=== PATIENT | female | born 1955 | race Hispanic/Latino ===

== ENCOUNTER 2018-03-13 15:50 | Emergency (ER) | payer BC ==
[2018-03-13 16:30] LABS: BASOPHILS % (AUTO) 0.7 % (0.0-5.0); EOSINOPHILS % (AUTO) 2.1 % (0.0-8.0); HEMATOCRIT 29.4 % (36-48); LYMPHOCYTES % (AUTO) 21.3 % (21.0-51.0); MEAN CORPUSCULAR HEMOGLOBIN 26.4 pg (27.0-33.0); MEAN CORPUSCULAR HGB CONC 32.9 g/dL (32.0-36.0); MEAN CORPUSCULAR VOLUME 80.1 fL (79-99); MONOCYTES % (AUTO) 5.4 % (3.0-13.0); NEUTROPHILS % (AUTO) 70.5 % (40.0-77.0); PLATELET COUNT (AUTO) 92 K/uL (130-400); RED BLOOD CELL COUNT(AUTO) 3.67 MIL/uL (4.00-5.50); RED CELL DISTRIBUTION WIDTH 18.5 % (11.0-15.5); WHITE BLOOD COUNT (AUTO) 3.5 K/uL (4.8-10.8)
[2018-03-13 16:47] LABS: INR 1.11 (0.85-1.15); PROTHROMBIN TIME 11.6 SEC (9.6-11.6)
[2018-03-13 17:11] LABS: ALBUMIN 2.6 g/dL (3.5-5.0); BILIRUBIN,TOTAL 3.7 mg/dL (0.2-1.0); CREATINE KINASE MB 0.6 ng/mL (0.5-3.6); CREATININE 0.7 mg/dL (0.5-1.5); TOTAL PROTEIN, SERUM 7.2 g/dL (6.0-8.3)
[2018-03-13 17:19] LABS: APPEARANCE,URINE Clear (CLEAR); BILIRUBIN,URINE Negative (NEGATIVE); COLOR,URINE Dark Yellow (YELLOW); GLUCOSE, URINE (UA) Negative (NEGATIVE); KETONES,URINE Negative (NEGATIVE); LEUKOCYTE ESTERASE ,URINE Trace (NEGATIVE); NITRATE,URINE Negative (NEGATIVE); OCCULT BLOOD,URINE Negative (NEGATIVE); PH,URINE 5.5 (5.0-8.0); PROTEIN,URINE Negative (NEGATIVE)
[2018-03-13 17:41] LABS: RBC,URINE None Seen /HPF (0-1)
[2018-03-13 17:42] LABS: BACTERIA,URINE None Seen /HPF (None Seen); SQUAMOUS EPITHELIAL CELL,UR 0-2 /HPF (0-2); WBC,URINE 0-1 /HPF (0-1)
[2018-03-13] MEDS ORDERED: TRAMADOL HCL 50 MG TABLET ONE (21:28)
== END 2018-03-13 21:41 | disposition home or self-care (01) ==
LOC: EDH 15:50
DX: R10.9 Unspecified abdominal pain (principal); E11.9 Type 2 diabetes mellitus without complications; I10 Essential (primary) hypertension; E78.00 Pure hypercholesterolemia, unspecified; K74.60 Unspecified cirrhosis of liver; Z87.891 Personal history of nicotine dependence
CPT/HCPCS: 36415; 71045; 74176; 80053; 81001; 82150; 82553; 84484; 85025; 85610; 85730; 93005

== ENCOUNTER 2018-12-14 14:52 | Inpatient (IN) | payer BC, OTHER ==
[~2018-12-14] VITALS: Ht 170.2 cm; Wt 97.5 kg
[2018-12-14 15:33] LABS: BASOPHILS % (AUTO) 0.6 % (0.0-5.0); EOSINOPHILS % (AUTO) 2.1 % (0.0-8.0); HEMATOCRIT 29.3 % (36-48); LYMPHOCYTES % (AUTO) 14.2 % (21.0-51.0); MEAN CORPUSCULAR HEMOGLOBIN 24.2 pg (27.0-33.0); MEAN CORPUSCULAR HGB CONC 31.6 g/dL (32.0-36.0); MEAN CORPUSCULAR VOLUME 76.6 fL (79-99); MONOCYTES % (AUTO) 5.1 % (3.0-13.0); PLATELET COUNT (AUTO) 85 K/uL (130-400); RED BLOOD CELL COUNT(AUTO) 3.83 MIL/uL (4.00-5.50); RED CELL DISTRIBUTION WIDTH 18.3 % (11.0-15.5); WHITE BLOOD COUNT (AUTO) 3.4 K/uL (4.8-10.8)
[2018-12-14] MEDS ORDERED: ONDANSETRON HCL 4 MG/2 ML VIAL ONE (15:36)
[2018-12-14] MEDS ORDERED: MORPHINE SULFATE 4 MG/1ML SYG ONE (15:37)
[2018-12-14 15:46] LABS: ALBUMIN 2.8 g/dL (3.5-5.0); BILIRUBIN,TOTAL 1.9 mg/dL (0.2-1.0); TOTAL PROTEIN, SERUM 7.5 g/dL (6.0-8.3)
[2018-12-14 15:58] LABS: APPEARANCE,URINE Clear (CLEAR); BILIRUBIN,URINE Negative (NEGATIVE); COLOR,URINE Yellow (YELLOW); GLUCOSE, URINE (UA) Negative (NEGATIVE); KETONES,URINE Negative (NEGATIVE); LEUKOCYTE ESTERASE ,URINE Small (NEGATIVE); NITRATE,URINE Negative (NEGATIVE); OCCULT BLOOD,URINE Large (NEGATIVE); PROTEIN,URINE Negative (NEGATIVE)
[2018-12-14 16:55] LABS: BACTERIA,URINE Few /HPF (None Seen); MUCUS,URINE Few LPF (None Seen); RBC,URINE >100 /HPF (0-1)
[2018-12-14] MEDS ORDERED: MEPERIDINE-PF 25 MG/ML SYG IV PRN (17:30)
[2018-12-14] MEDS ORDERED: MEPERIDINE-PF 50 MG/ML SYG IVP PRN (17:30)
[2018-12-14] MEDS ORDERED: ONDANSETRON HCL 4 MG/2 ML VIAL IVP PRN (17:30)
[2018-12-14] MEDS ORDERED: VANCOMYCIN PROTOCOL PER PHARMACY IV SCH (17:30)
[2018-12-14] MEDS ORDERED: ZOSYN 3.375GM+NS 50ML 50 ML IV ONE (17:39)
[2018-12-14] MEDS ORDERED: VANCOMYCIN 1GM+NS 250ML 250 ML IV ONE (17:39)
[2018-12-14] MEDS ORDERED: VANCOMYCIN 1GM+NS 250ML 250 ML IV SCH (18:00)
[2018-12-14] MEDS: ZOSYN 3.375GM+NS 50ML 50 ML IV SCH (18:00)
[2018-12-14] MEDS: FAMOTIDINE/PF 20 MG/2 ML VIAL IV SCH (21:00)
[2018-12-14] MEDS ORDERED: AMLO10TA7 PO (22:09)
[2018-12-14] MEDS ORDERED: FURO40TA5 PO (22:09)
[2018-12-14] MEDS ORDERED: URSO500T9 PO (22:09)
[2018-12-14] MEDS ORDERED: METO-391 PO (22:09)
[2018-12-14] MEDS ORDERED: LEVO50TA11 PO (22:09)
[2018-12-14] MEDS ORDERED: METF-444 PO (22:09)
[2018-12-14] MEDS ORDERED: SPIR50TA5 PO (22:09)
[2018-12-14] MEDS ORDERED: LACT10SO9 PO (22:09)
[2018-12-14] MEDS ORDERED: LOSA1TAB54 PO (22:09)
[2018-12-14 23:00] VITALS: BP 99/50
[2018-12-14] MEDS: SODIUM CHLORIDE 0.9% 1000ML 1,000 ML IV SCH (23:00)
[2018-12-15 04:00] VITALS: BP 99/55
[2018-12-15] MEDS: SODIUM CHLORIDE 0.9% 1000ML 1,000 ML IV SCH ×2 (04:45→17:18)
[2018-12-15] MEDS: ZOSYN 3.375GM+NS 50ML 50 ML IV SCH ×3 (04:45→17:16)
[2018-12-15] MEDS ORDERED: COMPOUND IV REFRIGERATED 1 EACH IVSOLN MISC PRN (06:45)
[2018-12-15 07:00] VITALS: BP 99/50
[2018-12-15] MEDS: FAMOTIDINE/PF 20 MG/2 ML VIAL IV SCH ×2 (10:12→21:00)
[2018-12-15] MEDS: VANCOMYCIN 1.5 GM in SODIUM CHLORIDE 0.9% 250 ML IV SCH ×2 (10:13→21:00)
[2018-12-15 11:00] VITALS: BP 90/48
[2018-12-15 12:26] LABS: BASOPHILS % (AUTO) 1.5 % (0.0-5.0); EOSINOPHILS % (AUTO) 4.1 % (0.0-8.0); HEMATOCRIT 26.5 % (36-48); LYMPHOCYTES % (AUTO) 29.5 % (21.0-51.0); MEAN CORPUSCULAR HEMOGLOBIN 24.2 pg (27.0-33.0); MEAN CORPUSCULAR HGB CONC 31.2 g/dL (32.0-36.0); MEAN CORPUSCULAR VOLUME 77.8 fL (79-99); MONOCYTES % (AUTO) 8.9 % (3.0-13.0); NUCLEATED RED BLOOD CELLS 0.1 % (0.0-0.19); PLATELET COUNT (AUTO) 79 K/uL (130-400); RED BLOOD CELL COUNT(AUTO) 3.41 MIL/uL (4.00-5.50); RED CELL DISTRIBUTION WIDTH 18.7 % (11.0-15.5); WHITE BLOOD COUNT (AUTO) 2.5 K/uL (4.8-10.8)
[2018-12-15 12:35] LABS: CREATININE 1.1 mg/dL (0.5-1.5); POTASSIUM 3.5 mmol/L (3.5-5.1)
[2018-12-15 12:47] LABS: EOSINOPHILS % (MANUAL) 2 % (1-6); LYMPHOCYTES % (MANUAL) 27 % (22-44); MAN.DIFF COMMENT-IMPRESSION MANUAL DIFFERENTIAL; MONOCYTES % (MANUAL) 7 % (2-9); REACTIVE LYMPHOCYTES 1 % (0-0); SEGMENTED NEUTROPHILS % 63 % (40-70)
[2018-12-15 16:00] VITALS: BP 107/54
--- NOTE | 2018-12-15 17:00 | NUR ---
MONSTER Bucio PT AND DAUGHTERS/ FAMILY; LIVES WITH SPOUSE, AAOX3, NO DME NO HH NO PROVIDER SERVICES. DCP HOME Addendum: 12/15/18 at 1902 by SHERRY NOLAND RN CM Amended: Links added.
[2018-12-15 19:00] VITALS: BP 106/58
[2018-12-15] MEDS ORDERED: [UNRECOGNIZED DRUG - CODE] PO (21:45)
--- NOTE | 2018-12-15 21:58 | NUR ---
Patient went home with daughter Meri-[phone] in private vehicle. Offered wheel chair, refused it and go to the entrance as ambulative.
== END 2018-12-15 22:00 | disposition home or self-care (01) | DRG 254 ==
LOC: EDH 14:52 → EDHIP 17:00 → 3DH 23:03
PROVIDERS: ADMIT Family Medicine; ATTEND Family Medicine
DX: K42.9 Umbilical hernia without obstruction or gangrene (principal)
CPT/HCPCS: 36415; 74176; 80048; 80053; 81001; 83690; 85025; 87040; G0378; J2270; J2405; J2543; J3370; J3490; J7030

== ENCOUNTER → 2019-01-02 | Outpatient (CLI) | payer OTHER ==
[~2019-01-02] MED LIST: AMLO10TA7 PO; FURO40TA5 PO; LACT10SO9 PO; LEVO50TA11 PO; LOSA1TAB54 PO; METF-444 PO; METO-391 PO; SPIR50TA5 PO; URSO500T9 PO; [UNRECOGNIZED DRUG - CODE] PO
== END | disposition home or self-care (01) ==
LOC: RAH 09:19
PROVIDERS: ATTEND Internal Medicine Gastroenterology
DX: K74.3 Primary biliary cirrhosis (principal); Z90.49 Acquired absence of other specified parts of digestive tract
CPT/HCPCS: 76700; 93975

== ENCOUNTER → 2019-12-22 | Outpatient (CLI) | payer OTHER ==
[~2019-12-22] MED LIST changes: +ALBUMIN (HUMAN) 25% 200 ML IV SCH; +ERGO500014 PO; +FERS325 PO; +MAGN296S76 PO; +OMEP40CA13 PO; +RIFA550T PO; +SENN25TA PO; +URSO500T10 PO; -URSO500T9 PO; -[UNRECOGNIZED DRUG - CODE] PO
[2019-12-22 08:38] LABS: INR 1.12 (0.85-1.15)
--- NOTE | 2019-12-22 10:15 | NUR ---
U/S GD PARACENTESIS PROCEDURE PERFORMED BY DR Willa ROTH. PUNCTURE SITE RLQ AND PATIENT TOLERATED PROCEDURE WELL. TOTAL REMOVED 7.8 LITERS OF CLOUDY YELLOW FLUID. ALBUMIN 25% 50 GRAMS IV GIVEN DURING PROCEDURE. SPECIMEN SENT TO LAB. END OF PROCEDURE AT 0945. CATHETER REMOVED AND DRESSING APPLIED. NO BLEEDING NOTED. DISCHARGE INSTRUCTIONS GIVEN TO PATIENT AND VERBALIZED UNDERSTANDING. DISCHARGED VIA AMBULATION. AAO X3 WITH NO C/O PAIN.
[2019-12-22 15:54] LABS: APPEARANCE BODY FLUID CLEAR (CLEAR); COLOR,BODY FLUID YELLOW (LT YELLOW); SPECIMENTYPE,BODY FLUID ASCITES
[2019-12-22 15:55] LABS: BODY FLUID RBC 60 /cu. mm.; BODY FLUID WBC 88 /cu. mm.
[2019-12-22 16:15] LABS: TOTAL VOLUME,BODY FLUID 7800 mL
[2019-12-22 17:56] LABS: BF LYMPHOCYTE 9 %; BF MESOTHELIAL 2 %; BF MONOCYTE 8 %
== END ==
LOC: RAH 07:17
PROVIDERS: ATTEND Student in an Organized Health Care Education/Training Program
DX: R18.8 Other ascites (principal); Z79.01 Long term (current) use of anticoagulants
CPT/HCPCS: 36415; 49083; 85610; 85730; 87071; 87205; 89051; A4215; P9046

== ENCOUNTER → 2020-01-10 | Outpatient (CLI) | payer OTHER ==
[2020-01-10 10:10] LABS: BASOPHILS % (AUTO) 0.5 % (0.0-5.0); EOSINOPHILS % (AUTO) 4.7 % (0.0-8.0); HEMATOCRIT 30.3 % (36-48); LYMPHOCYTES % (AUTO) 10.7 % (21.0-51.0); MEAN CORPUSCULAR HEMOGLOBIN 30.4 pg (27.0-33.0); MONOCYTES % (AUTO) 5.2 % (3.0-13.0); NEUTROPHILS % (AUTO) 78.3 % (40.0-77.0); PLATELET COUNT (AUTO) 113 K/uL (130-400); RED BLOOD CELL COUNT(AUTO) 3.19 MIL/uL (4.00-5.50); WHITE BLOOD COUNT (AUTO) 8.3 K/uL (4.8-10.8)
[2020-01-10 10:19] LABS: INR 1.12 (0.85-1.15)
[2020-01-10 10:24] LABS: ALBUMIN 2.2 g/dL (3.5-5.0); ASPARTATE AMINOTRANSFERASE 36 U/L (10-37); CARBON DIOXIDE 23 mmol/L (21-32); CHLORIDE 108 mmol/L (101-111); CREATININE 2.3 mg/dL (0.5-1.5); GLOMERULAR FILTR. RATE CALC 23 mL/min (>60); GLUCOSE,RANDOM 127 mg/dL (70-105); POTASSIUM 4.5 mmol/L (3.5-5.1); SODIUM SERUM 136 mmol/L (136-145); TOTAL PROTEIN, SERUM 7.6 g/dL (6.0-8.3); UREA NITROGEN, BLOOD 28 mg/dL (7-18)
[2020-01-10 10:43] LABS: ALANINE AMINOTRANSFERASE < 6 U/L (12-78)
--- NOTE | 2020-01-10 10:45 | NUR ---
U/S GD PARACENTESIS PROCEDURE PERFORMED BY DR. PATEL. PUNCTURE SITE RIGHT LOWER QUADRANT OF ABDOMEN AND PATIENT TOLERATED PROCEDURE WELL. TOTAL REMOVED 9.3 LITERS OF CLOUDY YELLOW FLUID. END OF PROCEDURE AT 1120. CATHETER REMOVED AND DRESSING APPLIED. NO BLEEDING NOTED. ALBUMIN 25% 50 GRAMS GIVEN DURING [place] [facility] [place]. PIV DC'D, BANDAID APPLIED, DRESSING DRY AND INTACT. DISCHARGE INSTUCTIONS GIVEN TO PATIENT. PATIENT VERBALIZED UNDERSTANDING. PT DISCHARGED AMBULATORY, STABLE, AAO X3 WITH NO C/O PAIN. SPECIMEN SENT TO LAB.
[2020-01-10 16:01] LABS: APPEARANCE BODY FLUID CLEAR (CLEAR); BODY FLUID WBC 53 /cu. mm.; COLOR,BODY FLUID YELLOW (LT YELLOW); SPECIMENTYPE,BODY FLUID ASCITES; TOTAL VOLUME,BODY FLUID 9300 mL
[2020-01-10 16:02] LABS: BODY FLUID RBC 70 /cu. mm.
[2020-01-10 16:46] LABS: BF LYMPHOCYTE 41 %; BF MONOCYTE 1 %
== END | disposition home or self-care (01) ==
LOC: RAH 09:43
PROVIDERS: ATTEND Internal Medicine Gastroenterology
DX: K74.3 Primary biliary cirrhosis (principal); R18.8 Other ascites; D50.9 Iron deficiency anemia, unspecified; E11.9 Type 2 diabetes mellitus without complications; I10 Essential (primary) hypertension; E78.5 Hyperlipidemia, unspecified; Z79.899 Other long term (current) drug therapy; Z86.010 Personal history of colon polyps; Z79.84 Long term (current) use of oral hypoglycemic drugs; Z90.49 Acquired absence of other specified parts of digestive tract; Z72.89 Other problems related to lifestyle; Z82.49 Family history of ischemic heart disease and other diseases of the circulatory system
CPT/HCPCS: 36415; 49083; 80053; 85025; 85610; 87071; 87205; 89051; A4215; P9046; 96365

== ENCOUNTER → 2020-02-02 | Outpatient (CLI) | payer OTHER ==
--- NOTE | 2020-02-02 09:36 | NUR ---
U/S GD PARACENTESIS PROCEDURE PERFORMED BY DR. Nohemi BARROSO. PUNCTURE SITE RIGHT LOWER QUADRANT OF ABDOMEN AND PATIENT TOLERATED PROCEDURE WELL. TOTAL REMOVED 9.4 LITERS OF CLOUDY YELLOW FLUID. END OF PROCEDURE AT 0900. CATHETER REMOVED AND DRESSING APPLIED. NO BLEEDING NOTED. ALBUMIN 25% 50 GRAMS GIVEN DURING PROCEDURE PER [facility] [place]. PIV DC'D, BANDAID APPLIED, DRESSING DRY AND INTACT. DISCHARGE INSTUCTIONS GIVEN TO PATIENT. PATIENT VERBALIZED UNDERSTANDING. PT DISCHARGED AMBULATORY, STABLE, AAO X3 WITH NO C/O PAIN. SPECIMEN SENT TO LAB.
[2020-02-02 13:29] LABS: APPEARANCE BODY FLUID SLIGHTLY CLOUDY (CLEAR); COLOR,BODY FLUID YELLOW (LT YELLOW); SPECIMENTYPE,BODY FLUID ASCITES
[2020-02-02 13:30] LABS: BODY FLUID RBC 50 /cu. mm.; BODY FLUID WBC 92 /cu. mm.; TOTAL VOLUME,BODY FLUID 9400 mL
[2020-02-02 13:33] LABS: BF LYMPHOCYTE 49 %; BF MONOCYTE 29 %
== END | disposition home or self-care (01) ==
LOC: RAH 08:03
PROVIDERS: ATTEND Internal Medicine Gastroenterology
DX: K74.3 Primary biliary cirrhosis (principal); R18.8 Other ascites; I10 Essential (primary) hypertension; E11.9 Type 2 diabetes mellitus without complications; E78.5 Hyperlipidemia, unspecified; Z79.84 Long term (current) use of oral hypoglycemic drugs; Z79.899 Other long term (current) drug therapy; Z90.49 Acquired absence of other specified parts of digestive tract; Z79.01 Long term (current) use of anticoagulants
CPT/HCPCS: 49083; 87071; 87205; 89051; 96365; A4215; P9046

== ENCOUNTER → 2020-02-21 | Outpatient (CLI) | payer OTHER ==
[2020-02-21 10:22] LABS: BASOPHILS % (AUTO) 0.5 % (0.0-5.0); EOSINOPHILS % (AUTO) 9.7 % (0.0-8.0); HEMATOCRIT 28.2 % (36-48); LYMPHOCYTES % (AUTO) 8.3 % (21.0-51.0); MEAN CORPUSCULAR HEMOGLOBIN 30.6 pg (27.0-33.0); MEAN CORPUSCULAR HGB CONC 32.6 g/dL (32.0-36.0); MEAN CORPUSCULAR VOLUME 93.7 fL (79-99); MONOCYTES % (AUTO) 5.1 % (3.0-13.0); NEUTROPHILS % (AUTO) 75.8 % (40.0-77.0); PLATELET COUNT (AUTO) 108 K/uL (130-400); RED BLOOD CELL COUNT(AUTO) 3.01 MIL/uL (4.00-5.50); WHITE BLOOD COUNT (AUTO) 8.2 K/uL (4.8-10.8)
[2020-02-21 10:28] LABS: INR 1.06 (0.85-1.15); PROTHROMBIN TIME 11.4 SEC (9.6-11.6)
[2020-02-21 10:30] LABS: ALBUMIN 2.5 g/dL (3.5-5.0); ASPARTATE AMINOTRANSFERASE 30 U/L (10-37); BILIRUBIN,TOTAL 1.3 mg/dL (0.2-1.0); CARBON DIOXIDE 22 mmol/L (21-32); CHLORIDE 105 mmol/L (101-111); CREATININE 3.6 mg/dL (0.5-1.5); GLOMERULAR FILTR. RATE CALC 14 mL/min (>60); GLUCOSE,RANDOM 104 mg/dL (70-105); POTASSIUM 5.3 mmol/L (3.5-5.1); SODIUM SERUM 136 mmol/L (136-145); TOTAL PROTEIN, SERUM 7.2 g/dL (6.0-8.3); UREA NITROGEN, BLOOD 61 mg/dL (7-18)
[2020-02-21 10:32] LABS: ALANINE AMINOTRANSFERASE < 6 U/L (12-78)
--- NOTE | 2020-02-21 11:00 | NUR ---
U/S GD PARACENTESIS PROCEDURE PERFORMED BY DR. MALHOTRA. PUNCTURE SITE RIGHT LOWER QUADRANT OF ABDOMEN AND PATIENT TOLERATED PROCEDURE WELL. TOTAL REMOVED 8.2 LITERS OF CLOUDY YELLOW FLUID. END OF PROCEDURE AT 1140. CATHETER REMOVED AND DRESSING APPLIED. NO BLEEDING NOTED. ALBUMIN 25% 50 GRAMS GIVEN DURING PROCEDURE PER [facility] [place]BUM[place] PROTOCOL. RIGHT ANTECUBITAL PIV DC'D, BANDAID APPLIED, DRESSING DRY AND INTACT. DISCHARGE INSTRUCTIONS GIVEN TO PATIENT. PATIENT VERBALIZED UNDERSTANDING. PT DISCHARGED VIA W/C, STABLE, AAO X3 WITH NO C/O PAIN. SPECIMEN SENT TO LAB.
[2020-02-21 13:56] LABS: APPEARANCE BODY FLUID CLEAR (CLEAR); COLOR,BODY FLUID YELLOW (LT YELLOW); SPECIMENTYPE,BODY FLUID ASCITES; TOTAL VOLUME,BODY FLUID 8400 mL
[2020-02-21 13:57] LABS: BODY FLUID RBC 62 /cu. mm.; BODY FLUID WBC 115 /cu. mm.
[2020-02-21 14:12] LABS: BF LYMPHOCYTE 29 %; BF MESOTHELIAL 29 %; BF MONOCYTE 10 %
== END | disposition home or self-care (01) ==
LOC: RAH 09:43
PROVIDERS: ATTEND Internal Medicine Gastroenterology
DX: R18.8 Other ascites (principal); K74.3 Primary biliary cirrhosis
CPT/HCPCS: 36415; 49083; 80053; 85025; 85610; 87071; 87205; 89051; A4215; P9046; 96365

== ENCOUNTER 2020-03-04 11:20 | Inpatient (IN) | payer OTHER ==
[~2020-03-04] VITALS: Ht 167.6 cm; Wt 86.5 kg
[~2020-03-04 11:20] MED LIST changes: -ALBUMIN (HUMAN) 25% 200 ML IV SCH; -AMLO10TA7 PO; -ERGO500014 PO; -MAGN296S76 PO; -SENN25TA PO
[2020-03-04 12:07] LABS: INR 1.08 (0.85-1.15); PARTIAL THROMBOPLASTIN TIME 23.1 SEC (26.3-35.5); PROTHROMBIN TIME 11.6 SEC (9.6-11.6)
[2020-03-04 12:08] LABS: ALBUMIN 2.6 g/dL (3.5-5.0); BILIRUBIN,TOTAL 2.4 mg/dL (0.2-1.0); CREATININE 3.4 mg/dL (0.5-1.5); TOTAL PROTEIN, SERUM 7.7 g/dL (6.0-8.3)
[2020-03-04 12:29] LABS: BASOPHILS % (AUTO) 0.5 % (0.0-5.0); EOSINOPHILS % (AUTO) 5.6 % (0.0-8.0); HEMATOCRIT 27.5 % (36-48); LYMPHOCYTES % (AUTO) 3.2 % (21.0-51.0); MEAN CORPUSCULAR HEMOGLOBIN 30.3 pg (27.0-33.0); MEAN CORPUSCULAR HGB CONC 33.5 g/dL (32.0-36.0); MEAN CORPUSCULAR VOLUME 90.5 fL (79-99); MONOCYTES % (AUTO) 4.7 % (3.0-13.0); NEUTROPHILS % (AUTO) 85.2 % (40.0-77.0); PLATELET COUNT (AUTO) 130 K/uL (130-400); RED BLOOD CELL COUNT(AUTO) 3.04 MIL/uL (4.00-5.50); RED CELL DISTRIBUTION WIDTH 15.9 % (11.0-15.5); WHITE BLOOD COUNT (AUTO) 16.4 K/uL (4.8-10.8)
[2020-03-04 12:34] LABS: POTASSIUM 6.4 mmol/L (3.5-5.1)
[2020-03-04] MEDS ORDERED: ZOSYN 3.375GM+NS 50ML 50 ML IV ONE (13:02)
[2020-03-04 13:05] LABS: APPEARANCE,URINE Clear (CLEAR); BILIRUBIN,URINE Small (NEGATIVE); COLOR,URINE Dark Yellow (YELLOW); GLUCOSE, URINE (UA) Negative (NEGATIVE); KETONES,URINE Negative (NEGATIVE); LEUKOCYTE ESTERASE ,URINE Trace (NEGATIVE); NITRATE,URINE Positive (NEGATIVE); OCCULT BLOOD,URINE Negative (NEGATIVE); PROTEIN,URINE Negative (NEGATIVE)
[2020-03-04 13:18] LABS: BACTERIA,URINE Many /HPF (None Seen); RBC,URINE 0-1 /HPF (0-1); SQUAMOUS EPITHELIAL CELL,UR Rare /HPF (0-2)
[2020-03-04 13:30] LABS: CREATINE KINASE, TOTAL 94 U/L (21-232); MYOGLOBIN 27 ng/mL (10-92); TROPONIN I < 0.04 ng/mL (0.00-0.06)
[2020-03-04] MEDS ORDERED: FUROSEMIDE 10 MG/ML 4ML VIAL ONE (15:19)
[2020-03-04] MEDS ORDERED: INSULIN HUMULIN R 100 UNIT/ML 3ML ONE (15:20)
[2020-03-04] MEDS ORDERED: DEXTROSE 50%-WATER 50 ML DISP.SYRIN IV ONE (15:20)
[2020-03-04 17:17] LABS: ABG BASE EXCESS -7.1 mmol/L (-2.0-3.0); ABG HCO3 16.2 mmol/L (21.0-28.0); ABG OXYGEN SATURATION 97.7 % (95.0-99.0); ABG PCO2 28 mmHg (32-45)
[2020-03-04] MEDS ORDERED: LACTATED RINGERS 1000ML 1,000 ML IV ONE (18:00)
[2020-03-04] MEDS ORDERED: NOREPINEPHRINE 4MG/NS 250ML IV SCH (18:15)
[2020-03-04 19:15] VITALS: BP 95/52
--- NOTE | 2020-03-04 19:15 | NUR ---
RECEIVED BY STRETCHER FROM ER. MOVED TO ICU BED 207. PLACED ON [employer] COORDINATOR,NIBP, PULSE OXIMETER. CALL LIGHT GIVEN AND EXPLAINED. LR BOLUS INFUSING FROM ER. INSTRUCTED TO CALL FOR WANTS OR NEEDS. ICE CHIPS PROVIDED AT HER REQUEST.
[2020-03-04 19:19] VITALS: BP 95/52
[2020-03-04 19:30] VITALS: BP 103/57
[2020-03-04 20:00] VITALS: BP 106/54
[2020-03-04 20:30] VITALS: BP 106/53
[2020-03-04] MEDS: ZOSYN 3.375GM+NS 50ML 50 ML IV SCH (21:05)
[2020-03-04] MEDS ORDERED: VITAMIN D2 (21:22)
[2020-03-04] MEDS ORDERED: LIDOCAINE HCL-MPF 1% 2ML VIAL IV PRN (22:15)
[2020-03-04] MEDS ORDERED: GUAIFENESIN-DM 200/20 MG 10 ML PO PRN (22:15)
[2020-03-04] MEDS ORDERED: POTASSIUM CHLORIDE 20MEQ/100ML 100 ML IV PRN (22:15)
[2020-03-04] MEDS ORDERED: MAG HYDROX/AL HYDROX/SIMETH ES 30 ML SUSP UDCUP PO PRN (22:15)
[2020-03-04] MEDS ORDERED: NITROGLYCERIN 0.4 MG SL TAB SL PRN (22:15)
[2020-03-04] MEDS ORDERED: ZOLPIDEM TARTRATE 5 MG TAB PO PRN ×2 (22:15)
[2020-03-04] MEDS ORDERED: ALPRAZOLAM 0.5 MG TABLET PO PRN (22:15)
[2020-03-04] MEDS ORDERED: ACETAMINOPHEN-CODEINE 300/30MG TAB PO PRN (22:15)
[2020-03-04] MEDS ORDERED: ONDANSETRON HCL 4 MG/2 ML VIAL IV PRN (22:15)
[2020-03-04] MEDS ORDERED: DOCUSATE SODIUM 100 MG CAP PO PRN (22:15)
[2020-03-04] MEDS ORDERED: ACETAMINOPHEN 325 MG TAB PO PRN ×2 (22:15)
[2020-03-04] MEDS ORDERED: LACTULOSE 20 GM/30 ML UDCUP PO PRN ×2 (22:15)
[2020-03-04] MEDS ORDERED: HYDRALAZINE HCL 20 MG/ML VIAL IV PRN (22:15)
[2020-03-04] MEDS ORDERED: DIPHENHYDRAMINE HCL 25 MG CAPSULE PO PRN (22:15)
[2020-03-04] MEDS ORDERED: DiphenhydrAMINE HCL 50 MG/ML VIAL IV PRN (22:15)
[2020-03-04] MEDS ORDERED: MAGNESIUM 2GM PREMIX 50ML 50 ML IV PRN (22:15)
[2020-03-04] MEDS ORDERED: MORPHINE SULFATE 2 MG/ML 1ML SYG IV PRN (22:15)
[2020-03-04] MEDS: SODIUM POLYSTYRENE SULFONATE 15 GM/60 ML ML PO SCH (23:22)
[2020-03-05] VITALS (9 sets, daily range): BP systolic 82–112; BP diastolic 42–74
[2020-03-05] MEDS: ZOSYN 3.375GM+NS 50ML 50 ML IV SCH ×3 (02:03→20:05)
[2020-03-05 03:43] LABS: MEAN CORPUSCULAR HEMOGLOBIN 31.3 pg (27.0-33.0); MEAN CORPUSCULAR HGB CONC 34.8 g/dL (32.0-36.0); MEAN CORPUSCULAR VOLUME 89.9 fL (79-99); RED BLOOD CELL COUNT(AUTO) 2.78 MIL/uL (4.00-5.50); WHITE BLOOD COUNT (AUTO) 11.7 K/uL (4.8-10.8)
[2020-03-05 03:53] LABS: INR 1.16 (0.85-1.15); PARTIAL THROMBOPLASTIN TIME 29.2 SEC (26.3-35.5); PROTHROMBIN TIME 12.5 SEC (9.6-11.6)
[2020-03-05 04:18] LABS: ALBUMIN 2.1 g/dL (3.5-5.0); ASPARTATE AMINOTRANSFERASE 31 U/L (10-37); BILIRUBIN,TOTAL 1.6 mg/dL (0.2-1.0); CARBON DIOXIDE 19 mmol/L (21-32); CHLORIDE 105 mmol/L (101-111); CREATININE 3.4 mg/dL (0.5-1.5); GLOMERULAR FILTR. RATE CALC 14 mL/min (>60); GLUCOSE,RANDOM 110 mg/dL (70-105); POTASSIUM 5.3 mmol/L (3.5-5.1); SODIUM SERUM 134 mmol/L (136-145); TOTAL PROTEIN, SERUM 6.2 g/dL (6.0-8.3); UREA NITROGEN, BLOOD 64 mg/dL (7-18)
[2020-03-05 04:39] LABS: ALANINE AMINOTRANSFERASE < 6 U/L (12-78)
[2020-03-05] MEDS: INSULIN HUMULIN R 100 UNIT/ML 3ML SQ SCH ×4 (06:12→20:03)
[2020-03-05] MEDS ORDERED: SODIUM BICARBONATE 650 MG TAB PO PRN (08:00)
[2020-03-05 08:08] LABS: CREATININE 3.3 mg/dL (0.5-1.5); POTASSIUM 5.5 mmol/L (3.5-5.1)
[2020-03-05] MEDS: MIDODRINE HCL 5 MG TABLET PO SCH ×3 (08:17→20:05)
[2020-03-05] MEDS: FAMOTIDINE 20MG TAB 20 MG TAB PO SCH (08:17)
--- NOTE | 2020-03-05 09:32 | NUR ---
ALERT AWAKE, ORIENTED, VITAL SIGNS STABLE. CONSENT SIGNED FOR PARACENTESIS PROCEDURE, TAKEN VIA BED AT THIS TIME WITHOUT INCIDENT
--- NOTE | 2020-03-05 10:30 | NUR ---
U/S GD PARACENTESIS PROCEDURE PERFORMED BY DR. Nohemi BARROSO. PUNCTURE SITE RIGHT LOWER QUADRANT OF ABDOMEN AND PATIENT TOLERATED PROCEDURE WELL. TOTAL REMOVED 6.8 LITERS OF CLOUDY YELLOW FLUID. END OF PROCEDURE AT 1015. CATHETER REMOVED AND DRESSING APPLIED. NO BLEEDING NOTED. ALBUMIN 25% 50 GRAMS ORDERED PER [facility] [place]. REPORT GIVEN TO FRANK RIDER AND PATIENT TRANSPORTED TO [facility] VIA BED AT 1030. NO C/O PAIN. SPECIMEN SENT TO LAB.
[2020-03-05 11:31] LABS: APPEARANCE BODY FLUID CLEAR (CLEAR); BODY FLUID RBC 90 /cu. mm.; BODY FLUID WBC 125 /cu. mm.; COLOR,BODY FLUID YELLOW (LT YELLOW); SPECIMENTYPE,BODY FLUID ASCITES; TOTAL VOLUME,BODY FLUID 6800 mL
--- NOTE | 2020-03-05 11:47 | NUR ---
DC PLAN VISITED WITH PATIENT. PATIENT LIVES WITH SPOUSE. INDEPENDENT ABLE TO PERFORM ADL'S. PATIENT HAS NO SERVICES OR DME'S. EXPLAINED PROVIDER INFO SAID WILL FOLLOW UP WITH DR. COLINDRES. FEELS SAFE TO DC HOME. Addendum: 03/05/20 at 1149 by JAG MORE RN CM Amended: Links added.
[2020-03-05 12:13] LABS: BF LYMPHOCYTE 21 %; BF MESOTHELIAL 20 %
[2020-03-05] MEDS ORDERED: PHARMACY COMMUNICATION MISC SCH (13:15)
[2020-03-05] MEDS: SODIUM POLYSTYRENE SULFONATE 15 GM/60 ML ML PO SCH (13:26)
[2020-03-05] MEDS ORDERED: DIPHENHYDRAMINE HCL 2% 30 GM CREAM.GM. TP PRN (13:30)
[2020-03-05] MEDS: ALBUMIN (HUMAN) 25% 200 ML IV SCH ×2 (14:03→14:07)
--- NOTE | 2020-03-05 15:08 | NUR ---
TRANSFER RECEIVED PATIENT VIA WHEELCHAIR. SHE IS NAUSEATED. SHE HAS BEEN ORIENTED TO ROOM AND USE OF CALL LIGHT. BED IS IN LOWEST POSITION AND LOCKED WITH PERSONAL ITEMS WITHIN REACH.
--- NOTE | 2020-03-05 16:33 | NUR ---
CREAM SEPARATOR OPERATOR DR. GUERRERO HERE TO SEE PATIENT. NEW ORDERS RECEIVED AND CARRIED OUT.
--- NOTE | 2020-03-05 20:05 | NUR ---
MEDS AWAKENED PT FOR DUE MEDS. SHIFT ASSESSMENT DONE, PLEASE REFER TO CHART. DUE MEDS ADMINISTERED, TOLERATED WELL. KEPT RESTED AND COMFORTABLE IN BED. CALL LIGHT WITHIN REACH. WILL MONITOR PT. Addendum: 03/05/20 at 2256 by WHITNEY COULTER RN RN Amended: Links added.
--- NOTE | 2020-03-05 22:00 | NUR ---
ROUNDS PT RESTING IN BED. CLAIMS OF HAVING A LOT OF ITCHING. BENADRYL CREAM APPLIED BY PT. ENCOURAGED TO REST AND SLEEP. WILL MONITOR PT. CALL LIGHT WITHIN REACH.
[2020-03-06] VITALS: BP 100/59
--- NOTE | 2020-03-06 02:00 | NUR ---
ROUNDS PT RESTING WELL, FAIRLY ASLEEP WITH RESPIRATIONS EVEN AND UNLABORED. NO NOTED DISTRESS. KEPT RESTED AND COMFORTABLE. SALINE LOCKED PIV. WILL MONITOR PT.
[2020-03-06 02:46] LABS: HEMATOCRIT 25.4 % (36-48); MEAN CORPUSCULAR HEMOGLOBIN 30.5 pg (27.0-33.0); MEAN CORPUSCULAR HGB CONC 33.5 g/dL (32.0-36.0); PLATELET COUNT (AUTO) 89 K/uL (130-400); RED BLOOD CELL COUNT(AUTO) 2.79 MIL/uL (4.00-5.50); RED CELL DISTRIBUTION WIDTH 15.9 % (11.0-15.5); WHITE BLOOD COUNT (AUTO) 10.9 K/uL (4.8-10.8)
[2020-03-06 02:59] LABS: ALBUMIN 2.3 g/dL (3.5-5.0); BILIRUBIN,TOTAL 1.5 mg/dL (0.2-1.0); CREATININE 3.1 mg/dL (0.5-1.5); PHOSPHORUS 4.1 mg/dL (2.5-4.9); POTASSIUM 5.1 mmol/L (3.5-5.1); TOTAL PROTEIN, SERUM 6.2 g/dL (6.0-8.3)
[2020-03-06 04:00] VITALS: BP 100/56
[2020-03-06 04:53] LABS: BAND NEUTROPHILS % (MANUAL) 9 % (0-2); EOSINOPHILS % (MANUAL) 7 % (1-6); LYMPHOCYTES % (MANUAL) 13 % (22-44); MAN.DIFF COMMENT-IMPRESSION MANUAL DIFFERENTIAL; MONOCYTES % (MANUAL) 3 % (2-9); SEGMENTED NEUTROPHILS % 68 % (40-70)
[2020-03-06 04:54] LABS: PLATELET MORPHOLOGY COMMENT DECREASED
--- NOTE | 2020-03-06 06:00 | NUR ---
BM PT WAS ABOUT TO BE MEDICATED WITH LACTULOSE BUT PT CLAIMS SHE JUST HAD A BM. PT REQUESTED TO KEEP SCD'S OFF FOR NOW. ENDORSING TO AM SHIFT FOR MORE CARE.
[2020-03-06] MEDS: INSULIN HUMULIN R 100 UNIT/ML 3ML SQ SCH ×2 (06:39→11:30)
[2020-03-06 07:52] VITALS: BP 92/53
[2020-03-06] MEDS ORDERED: EPOETIN ALFA 10,000 UNIT/ML VIAL SQ SCH (08:15)
[2020-03-06] MEDS: FAMOTIDINE 20MG TAB 20 MG TAB PO SCH (08:31)
[2020-03-06] MEDS: MIDODRINE HCL 5 MG TABLET PO SCH ×2 (08:32→14:55)
[2020-03-06] MEDS: ZOSYN 3.375GM+NS 50ML 50 ML IV SCH (08:32)
[2020-03-06] MEDS ORDERED: MEDROXYPROGESTERONE ACET 5 MG TAB PO SCH (09:00)
[2020-03-06 11:51] VITALS: BP 90/50
[2020-03-06] MEDS ORDERED: CEPH500B PO (13:57)
[2020-03-06] MEDS ORDERED: MEDR5TAB5 PO (13:57)
[2020-03-06] MEDS ORDERED: Midodrine Hcl PO (14:07)
[2020-03-06 16:00] VITALS: BP 90/42
--- NOTE | 2020-03-06 18:50 | NUR ---
DISCHARGE PATIENT GIVEN DISCHARGE INSTRUCTIONS VIA TEACH BACK. 22G PIV TO RW DISCONTINUED, TIP INTACT. PATIENT TO FOLLOW UP WITH DR. COLINDRES VIA TELE MEDICINE, DR. MORIN AND DR. GUERRERO. RX GIVEN FOR MIDODRINE, KEFLEX AND MEDROXYPROGESTERONE WERE E-RX TO [facility] IN [address]. TELE PACK REMOVED AND RETURNED TO TELEMETRY. PATIENT STABLE AT THIS TIME AND WHEELED TO [facility] BY MELISSA SNOW FOR DISCHARGE.
[2020-03-27] MEDS ORDERED: LEVO75TA10 PO (13:17)
[2020-03-28] MEDS ORDERED: SPIR25TA6 PO (08:10)
== END 2020-03-06 18:50 | disposition home or self-care (01) | DRG 871 ==
LOC: EDH 11:20 → EDHIP 16:30 → 2BH 19:33 → 3DH 03-05 15:08
PROVIDERS: ADMIT Internal Medicine Pulmonary Disease; ATTEND Internal Medicine Pulmonary Disease
PROC: 0W9G3ZZ Drainage of Peritoneal Cavity, Percutaneous Approach (ICD-10-PCS; principal; 2020-03-05)
DX: A41.9 Sepsis, unspecified organism (principal); R65.21 Severe sepsis with septic shock; K76.7 Hepatorenal syndrome; R18.8 Other ascites; N17.9 Acute kidney failure, unspecified; K76.6 Portal hypertension; N39.0 Urinary tract infection, site not specified; N95.0 Postmenopausal bleeding; D64.9 Anemia, unspecified; E87.5 Hyperkalemia; D25.9 Leiomyoma of uterus, unspecified; D69.6 Thrombocytopenia, unspecified; E78.00 Pure hypercholesterolemia, unspecified; E78.5 Hyperlipidemia, unspecified; K74.60 Unspecified cirrhosis of liver; N18.9 Chronic kidney disease, unspecified; E11.22 Type 2 diabetes mellitus with diabetic chronic kidney disease; I12.9 Hypertensive chronic kidney disease with stage 1 through stage 4 chronic kidney disease, or unspecified chronic kidney disease; Z79.84 Long term (current) use of oral hypoglycemic drugs; Z79.899 Other long term (current) drug therapy; Z83.3 Family history of diabetes mellitus
CPT/HCPCS: 36415; 36600; 49083; 71045; 74176; 76770; 76856; 80048; 80053; 81001; 82140; 82248; 82550; 82803; 82948; 83540; 83550; 83605; 83735; 83874; 84100; 84145; 84484; 85018; 85025; 85027; 85610; 85730; 86850; 86900; 86901; 87040; 87071; 87077; 87088; 87186; 87205; 89051; 93005; G0378; J0885; J1815; J1940; J2543; J3490; J7070; P9046

== ENCOUNTER → 2020-03-21 | Outpatient (CLI) | payer OTHER ==
[~2020-03-21] MED LIST changes: +ALBUMIN (HUMAN) 25% 200 ML IV SCH; +CEPH500B PO; +LEVO75TA10 PO; +MEDR5TAB5 PO; +Midodrine Hcl PO; +SPIR25TA6 PO; +VITAMIN D2
[2020-03-21 08:29] LABS: BASOPHILS % (AUTO) 0.4 % (0.0-5.0); EOSINOPHILS % (AUTO) 11.1 % (0.0-8.0); HEMATOCRIT 29.4 % (36-48); LYMPHOCYTES % (AUTO) 8.5 % (21.0-51.0); MEAN CORPUSCULAR HEMOGLOBIN 30.6 pg (27.0-33.0); MEAN CORPUSCULAR HGB CONC 32.3 g/dL (32.0-36.0); MEAN CORPUSCULAR VOLUME 94.8 fL (79-99); MONOCYTES % (AUTO) 5.2 % (3.0-13.0); NEUTROPHILS % (AUTO) 74.5 % (40.0-77.0); PLATELET COUNT (AUTO) 129 K/uL (130-400); RED CELL DISTRIBUTION WIDTH 18.1 % (11.0-15.5); WHITE BLOOD COUNT (AUTO) 9.2 K/uL (4.8-10.8)
[2020-03-21 08:42] LABS: INR 1.04 (0.85-1.15); PROTHROMBIN TIME 11.2 SEC (9.6-11.6)
[2020-03-21 08:44] LABS: ALBUMIN 2.7 g/dL (3.5-5.0); BILIRUBIN,TOTAL 1.8 mg/dL (0.2-1.0); CREATININE 2.4 mg/dL (0.5-1.5); POTASSIUM 5.4 mmol/L (3.5-5.1); TOTAL PROTEIN, SERUM 7.8 g/dL (6.0-8.3)
--- NOTE | 2020-03-21 10:04 | NUR ---
U/S GD PARACENTESIS PROCEDURE PERFORMED BY DR. Christina HEAD. PUNCTURE SITE RIGHT LOWER QUADRANT OF ABDOMEN AND PATIENT TOLERATED PROCEDURE WELL. TOTAL REMOVED 9.5 LITERS OF CLOUDY YELLOW FLUID. END OF PROCEDURE AT 1140. CATHETER REMOVED AND DRESSING APPLIED. NO BLEEDING NOTED. ALBUMIN 25% 50 GRAMS GIVEN DURING PROCEDURE PER [facility] [place] ALBUMIN PROTOCOL. LEFT ANTECUBITAL PIV DC'D, BANDAID APPLIED, DRESSING DRY AND INTACT. DISCHARGE INSTRUCTIONS GIVEN TO PATIENT. PATIENT VERBALIZED UNDERSTANDING. PT DISCHARGED VIA W/C, STABLE, AAO X3 WITH NO C/O PAIN. SPECIMEN SENT TO LAB.
[2020-03-21 13:07] LABS: APPEARANCE BODY FLUID CLEAR (CLEAR); COLOR,BODY FLUID YELLOW (LT YELLOW); SPECIMENTYPE,BODY FLUID ASCITES; TOTAL VOLUME,BODY FLUID 9500 mL
[2020-03-21 13:08] LABS: BODY FLUID RBC 60 /cu. mm.; BODY FLUID WBC 48 /cu. mm.
[2020-03-21 13:48] LABS: BF LYMPHOCYTE 16 %; BF MESOTHELIAL 36 %; BF MONOCYTE 12 %
== END ==
LOC: RAH 07:53
PROVIDERS: ATTEND Internal Medicine Gastroenterology
DX: R18.8 Other ascites (principal); K74.3 Primary biliary cirrhosis; E78.5 Hyperlipidemia, unspecified; Z86.010 Personal history of colon polyps; Z90.49 Acquired absence of other specified parts of digestive tract; Z79.899 Other long term (current) drug therapy; I85.00 Esophageal varices without bleeding; K72.90 Hepatic failure, unspecified without coma; E11.22 Type 2 diabetes mellitus with diabetic chronic kidney disease; I12.9 Hypertensive chronic kidney disease with stage 1 through stage 4 chronic kidney disease, or unspecified chronic kidney disease; N18.3 Chronic kidney disease, stage 3 (moderate); K29.70 Gastritis, unspecified, without bleeding
CPT/HCPCS: 36415; 49083; 80053; 85025; 85610; 87071; 87205; 89051; A4215; P9046; 96365

== ENCOUNTER 2020-03-28 06:00 | Day surgery (SDC) | payer OTHER ==
[2020-03-28] MEDS ORDERED: SODIUM CHLORIDE 0.9% 1000ML 1,000 ML IV ONE (06:08)
--- NOTE | 2020-03-28 07:55 | NUR ---
ascites DR. FRANK EVALUATED PATIENTS ASCITES , SHE STATED CONTINUED WITH PLANNED PROCEDURE
[2020-03-28 08:00] VITALS: BP 131/68; PULSE 61; RESP 18; TEMP 97.5
[2020-03-28] MEDS ORDERED: PROPOFOL 10 MG/ML 20ML VIAL IV ONE (09:00)
[2020-03-28 09:15] VITALS: BP 95/40; PULSE 65; RESP 16; TEMP 97.5
[2020-03-28 09:20] VITALS: BP 105/47; PULSE 66; RESP 16
[2020-03-28 09:25] VITALS: BP 121/89; PULSE 70; RESP 16
[2020-03-28 09:30] VITALS: BP 109/53; PULSE 66; RESP 16; TEMP 97.5
== END 2020-03-28 09:55 | disposition home or self-care (01) ==
LOC: DAH 06:00 → ENDO 06:00
PROVIDERS: ATTEND Internal Medicine
DX: I85.10 Secondary esophageal varices without bleeding (principal); K74.60 Unspecified cirrhosis of liver; K31.89 Other diseases of stomach and duodenum; Z11.59 Encounter for screening for other viral diseases
CPT/HCPCS: 43239; 82948; A4215; A4221; A4222; A4223; A4606; A4620; A4663; J2704; J7030; U0003

== ENCOUNTER → 2020-04-04 | Outpatient (CLI) | payer OTHER ==
[~2020-04-04] MED LIST changes: +ALBUMIN (HUMAN) 25% 200 ML IV ONE; -ALBUMIN (HUMAN) 25% 200 ML IV SCH; -CEPH500B PO; -FERS325 PO; -FURO40TA5 PO; -LACT10SO9 PO; -LEVO50TA11 PO; -LEVO75TA10 PO; -LOSA1TAB54 PO; -MEDR5TAB5 PO; -METF-444 PO; -METO-391 PO; -Midodrine Hcl PO; -OMEP40CA13 PO; -RIFA550T PO; -SPIR25TA6 PO; -SPIR50TA5 PO; -URSO500T10 PO; -VITAMIN D2
--- NOTE | 2020-04-04 09:15 | NUR ---
U/S GD PARACENTESIS PROCEDURE PERFORMED BY DR. HEAD. PUNCTURE SITE RIGHT LOWER QUADRANT OF ABDOMEN AND PATIENT TOLERATED PROCEDURE WELL. TOTAL REMOVED 10.3 LITERS OF CLOUDY YELLOW FLUID. END OF PROCEDURE AT 0955. CATHETER REMOVED AND DRESSING APPLIED. NO BLEEDING NOTED. ALBUMIN 25% 50 GRAMS GIVEN DURING PROCEDURE PER [facility] [place]. LEFT WRIST PIV DC'D, BANDAID APPLIED, DRESSING DRY AND INTACT. DISCHARGE INSTRUCTIONS GIVEN TO PATIENT. PATIENT VERBALIZED UNDERSTANDING. PT DISCHARGED VIA W/C, STABLE, AAO X3 WITH NO C/O PAIN. SPECIMEN SENT TO LAB.
== END | disposition home or self-care (01) ==
LOC: RAH 07:43
PROVIDERS: ATTEND Internal Medicine Gastroenterology
DX: R18.8 Other ascites (principal); K74.3 Primary biliary cirrhosis; I12.9 Hypertensive chronic kidney disease with stage 1 through stage 4 chronic kidney disease, or unspecified chronic kidney disease; E11.22 Type 2 diabetes mellitus with diabetic chronic kidney disease; N18.3 Chronic kidney disease, stage 3 (moderate); E78.5 Hyperlipidemia, unspecified; I10 Essential (primary) hypertension; Z90.49 Acquired absence of other specified parts of digestive tract; Z79.899 Other long term (current) drug therapy; Z98.890 Other specified postprocedural states; Z86.010 Personal history of colon polyps
CPT/HCPCS: 36415; 49083; 80053; 85025; 85610; 87071; 87205; 89051; A4215

== ENCOUNTER → 2020-04-15 | Outpatient (CLI) | payer OTHER ==
[~2020-04-15] MED LIST changes: +ALBUMIN (HUMAN) 25% 100 ML IV SCH; -ALBUMIN (HUMAN) 25% 200 ML IV ONE
--- NOTE | 2020-04-15 10:00 | NUR ---
U/S GD PARACENTESIS PROCEDURE PERFORMED BY DR. HEAD. PUNCTURE SITE RIGHT LOWER QUADRANT OF ABDOMEN AND PATIENT TOLERATED PROCEDURE WELL. TOTAL REMOVED 8.5 LITERS OF CLOUDY YELLOW FLUID. END OF PROCEDURE AT 0930. CATHETER REMOVED AND DRESSING APPLIED. NO BLEEDING NOTED. ALBUMIN 25% 50 GRAMS GIVEN DURING PROCEDURE [place] [facility] [place]. LEFT WRIST PIV DC'D, BANDAID APPLIED, DRESSING DRY AND INTACT. DISCHARGE INSTRUCTIONS GIVEN TO PATIENT. PATIENT VERBALIZED UNDERSTANDING. PT DISCHARGED VIA W/C, STABLE, AAO X3 WITH NO C/O PAIN. SPECIMEN SENT TO LAB.
== END ==
LOC: RAH 08:07
PROVIDERS: ATTEND Internal Medicine Gastroenterology
DX: R18.8 Other ascites (principal); K74.3 Primary biliary cirrhosis; I12.9 Hypertensive chronic kidney disease with stage 1 through stage 4 chronic kidney disease, or unspecified chronic kidney disease; E11.22 Type 2 diabetes mellitus with diabetic chronic kidney disease; N18.3 Chronic kidney disease, stage 3 (moderate); E78.5 Hyperlipidemia, unspecified; K29.70 Gastritis, unspecified, without bleeding; K72.90 Hepatic failure, unspecified without coma; I85.00 Esophageal varices without bleeding; Z79.890 Hormone replacement therapy; Z79.899 Other long term (current) drug therapy; Z72.89 Other problems related to lifestyle; Z86.010 Personal history of colon polyps; Z90.49 Acquired absence of other specified parts of digestive tract
CPT/HCPCS: 49083; 87071; 87205; 89051; A4215

== ENCOUNTER → 2020-04-25 | Outpatient (CLI) | payer OTHER ==
[~2020-04-25] MED LIST changes: -ALBUMIN (HUMAN) 25% 100 ML IV SCH; +ALBUMIN (HUMAN) 25% 200 ML IV SCH; +FERS325 PO; +LACT10SO9 PO; +LEVO75TA10 PO; +Midodrine Hcl PO; +OMEP40CA13 PO; +RIFA550T PO; +SPIR25TA6 PO; +URSO500T10 PO
--- NOTE | 2020-04-25 09:45 | NUR ---
U/S GD PARACENTESIS PROCEDURE PERFORMED BY DR. HEAD. PUNCTURE SITE LEFT LOWER QUADRANT OF ABDOMEN AND PATIENT TOLERATED PROCEDURE WELL. TOTAL REMOVED 10.1 LITERS OF CLOUDY YELLOW FLUID. END OF PROCEDURE AT 1045. CATHETER REMOVED AND DRESSING APPLIED. NO BLEEDING NOTED. ALBUMIN 25% 50 GRAMS GIVEN DURING PROCEDURE PER [facility] [place] [facility] PROTOC[place]. RIGHT ANTECUBITAL PIV DC'D, BANDAID APPLIED, DRESSING DRY AND INTACT. DISCHARGE INSTRUCTIONS GIVEN TO PATIENT. PATIENT VERBALIZED UNDERSTANDING. PT DISCHARGED VIA W/C, STABLE, AAO X3 WITH NO C/O PAIN. SPECIMEN SENT TO LAB.
[2020-04-25 13:57] LABS: APPEARANCE BODY FLUID CLEAR (CLEAR); BODY FLUID WBC 84 /cu. mm.; COLOR,BODY FLUID YELLOW (LT YELLOW); SPECIMENTYPE,BODY FLUID ASCITES; TOTAL VOLUME,BODY FLUID 10100 mL
[2020-04-25 13:58] LABS: BODY FLUID RBC 407 /cu. mm.
[2020-04-25 14:06] LABS: BF LYMPHOCYTE 11 %; BF MESOTHELIAL 25 %; BF MONOCYTE 18 %
== END ==
LOC: RAH 10:00
PROVIDERS: ATTEND Internal Medicine Gastroenterology
DX: R18.8 Other ascites (principal); K74.3 Primary biliary cirrhosis; I12.9 Hypertensive chronic kidney disease with stage 1 through stage 4 chronic kidney disease, or unspecified chronic kidney disease; E11.22 Type 2 diabetes mellitus with diabetic chronic kidney disease; N18.3 Chronic kidney disease, stage 3 (moderate); E78.5 Hyperlipidemia, unspecified; K72.90 Hepatic failure, unspecified without coma; Z90.49 Acquired absence of other specified parts of digestive tract; Z79.899 Other long term (current) drug therapy; Z72.89 Other problems related to lifestyle; Z79.84 Long term (current) use of oral hypoglycemic drugs
CPT/HCPCS: 49083; 87071; 87205; 89051; A4215; P9046; 96365

== ENCOUNTER → 2020-05-06 | Outpatient (CLI) | payer OTHER ==
--- NOTE | 2020-05-06 11:15 | NUR ---
U/S GD PARACENTESIS PROCEDURE PERFORMED BY DR. HEAD. PUNCTURE SITE RIGHT LOWER QUADRANT OF ABDOMEN AND PATIENT TOLERATED PROCEDURE WELL. TOTAL REMOVED 7.8 LITERS OF CLOUDY YELLOW FLUID. END OF PROCEDURE AT 1045. CATHETER REMOVED AND DRESSING APPLIED. NO BLEEDING NOTED. ALBUMIN 25% 50 GRAMS GIVEN DURING PROCEDURE PER [facility] [place] PROT[place]OL. LEFT FOREARM PIV DC'D, BANDAID APPLIED, DRESSING DRY AND INTACT. DISCHARGE INSTRUCTIONS GIVEN TO PATIENT. PATIENT VERBALIZED UNDERSTANDING. PT DISCHARGED VIA W/C, STABLE, AAO X3 WITH NO C/O PAIN. SPECIMEN SENT TO LAB.
[2020-05-06 13:48] LABS: APPEARANCE BODY FLUID CLEAR (CLEAR); BODY FLUID WBC 208 /cu. mm.; COLOR,BODY FLUID YELLOW (LT YELLOW); SPECIMENTYPE,BODY FLUID ASCITES; TOTAL VOLUME,BODY FLUID 7800 mL
[2020-05-06 13:49] LABS: BODY FLUID RBC 97 /cu. mm.
[2020-05-06 14:04] LABS: BF LYMPHOCYTE 7 %; BF MESOTHELIAL 9 %; BF MONOCYTE 16 %
== END ==
LOC: RAH 07:44
PROVIDERS: ATTEND Internal Medicine Gastroenterology
DX: R18.8 Other ascites (principal); K74.60 Unspecified cirrhosis of liver
CPT/HCPCS: 49083; 87071; 87205; 89051; A4215; P9047; 96365

== ENCOUNTER → 2020-05-16 | Outpatient (CLI) | payer OTHER ==
[2020-05-16 08:37] LABS: HEMATOCRIT 29.6 % (36-48); MEAN CORPUSCULAR HEMOGLOBIN 31.2 pg (27.0-33.0); MEAN CORPUSCULAR HGB CONC 32.4 g/dL (32.0-36.0); MEAN CORPUSCULAR VOLUME 96.1 fL (79-99); PLATELET COUNT (AUTO) 126 K/uL (130-400); RED BLOOD CELL COUNT(AUTO) 3.08 MIL/uL (4.00-5.50); RED CELL DISTRIBUTION WIDTH 16.8 % (11.0-15.5); WHITE BLOOD COUNT (AUTO) 13.6 K/uL (4.8-10.8)
[2020-05-16 08:54] LABS: INR 1.05 (0.85-1.15); PROTHROMBIN TIME 11.3 SEC (9.6-11.6)
[2020-05-16 08:59] LABS: ALBUMIN 2.8 g/dL (3.5-5.0); BILIRUBIN,TOTAL 2.1 mg/dL (0.2-1.0); CREATININE 1.7 mg/dL (0.5-1.5); POTASSIUM 5.2 mmol/L (3.5-5.1); TOTAL PROTEIN, SERUM 7.3 g/dL (6.0-8.3)
--- NOTE | 2020-05-16 09:00 | NUR ---
U/S GUIDED PARACENTESIS PROCEDURE PERFORMED BY DR. PALMER. PUNCTURE SITE LEFT LOWER QUADRANT AND PATIENT TOLERATED PROCEDURE WELL. TOTAL REMOVED 8.0 LITERS OF CLOUDY YELLOW ASCITES FLUID. END OF PROCEDURE AT 0940. CATHETER REMOVED AND DRESSING APPLIED. NO BLEEDING NOTED. ALBUMIN 25% 50 GRAMS GIVEN IV PER ALBUMIN PROTOCOL. RIGHT ANTECUBITAL PIV DCD, BANDAID APPLIED, NO BLEEDING NOTED. DISCHARGE INSTRUCTION GIVEN TO PATIENT AND VERBALIZED UNDERSTANDING. DISCHARGED AMBULATORY @ 1030 STABLE, AAO X 3 WITH NO C/O PAIN.
[2020-05-16 09:07] LABS: EOSINOPHILS % (MANUAL) 1 % (1-6); LYMPHOCYTES % (MANUAL) 6 % (22-44); SEGMENTED NEUTROPHILS % 93 % (40-70)
[2020-05-16 09:08] LABS: MAN.DIFF COMMENT-IMPRESSION MANUAL DIFFERENTIAL; PLATELET MORPHOLOGY COMMENT SLIGHTLY DECREASED
[2020-05-16 14:19] LABS: APPEARANCE BODY FLUID CLEAR (CLEAR); SPECIMENTYPE,BODY FLUID ASCITES
[2020-05-16 14:20] LABS: BODY FLUID RBC 111 /cu. mm.; BODY FLUID WBC 69 /cu. mm.; COLOR,BODY FLUID YELLOW (LT YELLOW); TOTAL VOLUME,BODY FLUID 8000 mL
[2020-05-16 14:26] LABS: BF LYMPHOCYTE 18 %; BF MESOTHELIAL 11 %; BF MONOCYTE 21 %
== END ==
LOC: RAH 07:45
PROVIDERS: ATTEND Internal Medicine Gastroenterology
DX: R18.8 Other ascites (principal); K72.90 Hepatic failure, unspecified without coma; I85.00 Esophageal varices without bleeding; K29.30 Chronic superficial gastritis without bleeding; Z86.010 Personal history of colon polyps; E11.22 Type 2 diabetes mellitus with diabetic chronic kidney disease; I12.9 Hypertensive chronic kidney disease with stage 1 through stage 4 chronic kidney disease, or unspecified chronic kidney disease; N18.3 Chronic kidney disease, stage 3 (moderate); E78.5 Hyperlipidemia, unspecified; Z79.899 Other long term (current) drug therapy
CPT/HCPCS: 36415; 49083; 80053; 85025; 85610; 85730; 87071; 87077; 87186; 87205; 89051; A4215; P9047; 96365

== ENCOUNTER → 2020-05-27 | Outpatient (CLI) | payer OTHER ==
--- NOTE | 2020-05-27 12:52 | NUR ---
U/S GUIDED PARACENTESIS PROCEDURE PERFORMED BY DR. Christina HEAD. PUNCTURE SITE LEFT LOWER QUADRANT AND PATIENT TOLERATED PROCEDURE WELL. TOTAL REMOVED 8.7 LITERS OF CLOUDY YELLOW ASCITES FLUID. END OF PROCEDURE AT 1205. CATHETER REMOVED AND DRESSING APPLIED. NO BLEEDING NOTED. ALBUMIN 25% 50 GRAMS GIVEN IV PER ALBUMIN PROTOCOL. RIGHT ANTECUBITAL PIV DCD, BANDAID APPLIED, NO BLEEDING NOTED. DISCHARGE INSTRUCTION GIVEN TO PATIENT AND VERBALIZED UNDERSTANDING. DISCHARGED AMBULATORY @ 1300 STABLE, AAO X 3 WITH NO C/O PAIN.
[2020-05-27 15:32] LABS: APPEARANCE BODY FLUID CLEAR (CLEAR); SPECIMENTYPE,BODY FLUID ASCITES
[2020-05-27 15:33] LABS: BODY FLUID RBC 212 /cu. mm.; BODY FLUID WBC 38 /cu. mm.; COLOR,BODY FLUID YELLOW (LT YELLOW); TOTAL VOLUME,BODY FLUID 2700 mL
[2020-05-27 16:48] LABS: BF LYMPHOCYTE 39 %; BF MESOTHELIAL 27 %; BF MONOCYTE 6 %
== END ==
LOC: RAH 09:34
PROVIDERS: ATTEND Internal Medicine Gastroenterology
DX: R18.8 Other ascites (principal); K74.3 Primary biliary cirrhosis; E11.22 Type 2 diabetes mellitus with diabetic chronic kidney disease; I12.9 Hypertensive chronic kidney disease with stage 1 through stage 4 chronic kidney disease, or unspecified chronic kidney disease; N18.3 Chronic kidney disease, stage 3 (moderate); E78.5 Hyperlipidemia, unspecified; D64.9 Anemia, unspecified; Z86.010 Personal history of colon polyps; Z90.49 Acquired absence of other specified parts of digestive tract; Z72.89 Other problems related to lifestyle; Z79.899 Other long term (current) drug therapy; Z79.890 Hormone replacement therapy; Z79.84 Long term (current) use of oral hypoglycemic drugs; Z87.19 Personal history of other diseases of the digestive system
CPT/HCPCS: 49083; 87071; 87205; 89051; A4215; P9046; 96365

== ENCOUNTER → 2020-06-06 | Outpatient (CLI) | payer OTHER ==
[~2020-06-06] MED LIST changes: +ALBUMIN (HUMAN) 25% 200 ML IV PRN; -ALBUMIN (HUMAN) 25% 200 ML IV SCH
--- NOTE | 2020-06-06 11:35 | NUR ---
U/S GUIDED PARACENTESIS PROCEDURE PERFORMED BY PUNCTURE SITE RLQ AND PATIENT TOLERATED PROCEDURE WELL. TOTAL REMOVED 9.4 LITERS OF CLEAR YELLOW ASCITES FLUID . END OF PROCEDURE AT 1217 CATHETER REMOVED AND DRESSING APPLIED. NO BLEEDING NOTED. ALBUMIN 25% 50 GRAMS GIVEN IV PER ALBUMIN PROTOCOL. PIV DCD, BANDAID APPLIED, NO BLEEDING NOTED. DISCHARGE INSTRUCTION GIVEN TO PATIENT AND VERBALIZED UNDERSTANDING. AAO X 3 WITH NO C/O PAIN.
[2020-06-06 13:14] LABS: APPEARANCE BODY FLUID CLEAR (CLEAR); COLOR,BODY FLUID YELLOW (LT YELLOW); SPECIMENTYPE,BODY FLUID ASCITES
[2020-06-06 13:15] LABS: BODY FLUID RBC 185 /cu. mm.; BODY FLUID WBC 44 /cu. mm.
[2020-06-06 13:21] LABS: TOTAL VOLUME,BODY FLUID 9400 mL
[2020-06-06 13:54] LABS: BF LYMPHOCYTE 37 %; BF MESOTHELIAL 14 %; BF MONOCYTE 17 %
== END ==
LOC: RAH 09:39
PROVIDERS: ATTEND Internal Medicine Gastroenterology
DX: R18.8 Other ascites (principal); K74.3 Primary biliary cirrhosis; K72.90 Hepatic failure, unspecified without coma; E11.22 Type 2 diabetes mellitus with diabetic chronic kidney disease; I12.9 Hypertensive chronic kidney disease with stage 1 through stage 4 chronic kidney disease, or unspecified chronic kidney disease; N18.3 Chronic kidney disease, stage 3 (moderate); E78.5 Hyperlipidemia, unspecified; Z79.899 Other long term (current) drug therapy; Z79.01 Long term (current) use of anticoagulants; Z90.49 Acquired absence of other specified parts of digestive tract
CPT/HCPCS: 49083; 87071; 87205; 89051; A4215; 96365

== ENCOUNTER → 2020-06-18 | Outpatient (CLI) | payer OTHER ==
[~2020-06-18] MED LIST changes: -ALBUMIN (HUMAN) 25% 200 ML IV PRN; +ALBUMIN (HUMAN) 25% 200 ML IV SCH
--- NOTE | 2020-06-18 11:00 | NUR ---
U/S GUIDED PARACENTESIS PROCEDURE PERFORMED BY DR. BARROSO. PUNCTURE SITE RIGHT LOWER QUADRANT AND PATIENT TOLERATED PROCEDURE WELL. TOTAL REMOVED 9.5 LITERS OF YELLOW CLOUDY ASCITES FLUID. END OF PROCEDURE AT 1130. CATHETER REMOVED AND DRESSING APPLIED. NO BLEEDING NOTED. ALBUMIN 25% 50 GRAMS GIVEN IV PER ALBUMIN PROTOCOL. LEFT ANTECUBITAL PIV DC'D, BANDAID APPLIED, DRESSING DRY AND INTACT. DISCHARGE INSTRUCTIONS GIVEN TO PATIENT. PATIENT VERBALIZED UNDERSTANDING. PT DISCHARGED VIA W/C. PT STABLE, AAO X 3 WITH NO C/O PAIN.
[2020-06-18 11:46] LABS: BASOPHILS % (AUTO) 1.5 % (0.0-5.0); EOSINOPHILS % (AUTO) 1.8 % (0.0-8.0); HEMATOCRIT 29.2 % (36-48); LYMPHOCYTES % (AUTO) 5.4 % (21.0-51.0); MEAN CORPUSCULAR HEMOGLOBIN 33.1 pg (27.0-33.0); MEAN CORPUSCULAR HGB CONC 33.6 g/dL (32.0-36.0); MEAN CORPUSCULAR VOLUME 98.6 fL (79-99); MONOCYTES % (AUTO) 0.6 % (3.0-13.0); NEUTROPHILS % (AUTO) 85.6 % (40.0-77.0); PLATELET COUNT (AUTO) 84 K/uL (130-400); RED BLOOD CELL COUNT(AUTO) 2.96 MIL/uL (4.00-5.50); RED CELL DISTRIBUTION WIDTH 15.5 % (11.0-15.5); WHITE BLOOD COUNT (AUTO) 3.3 K/uL (4.8-10.8)
[2020-06-18 11:59] LABS: INR 1.01 (0.85-1.15); PROTHROMBIN TIME 10.9 SEC (9.6-11.6)
[2020-06-18 12:04] LABS: ALBUMIN 3.1 g/dL (3.5-5.0); CREATININE 1.4 mg/dL (0.5-1.5); POTASSIUM 5.2 mmol/L (3.5-5.1); TOTAL PROTEIN, SERUM 7.9 g/dL (6.0-8.3)
[2020-06-18 13:29] LABS: SPECIMENTYPE,BODY FLUID ASCITES
[2020-06-18 13:30] LABS: APPEARANCE BODY FLUID CLEAR (CLEAR); BODY FLUID RBC 273 /cu. mm.; BODY FLUID WBC 42 /cu. mm.; COLOR,BODY FLUID YELLOW (LT YELLOW); TOTAL VOLUME,BODY FLUID 9500 mL
[2020-06-18 14:08] LABS: BF LYMPHOCYTE 16 %; BF MESOTHELIAL 17 %; BF MONOCYTE 4 %
== END | disposition home or self-care (01) ==
LOC: RAH 09:40
PROVIDERS: ATTEND Internal Medicine Gastroenterology
DX: R18.8 Other ascites (principal)
CPT/HCPCS: 36415; 49083; 80053; 85025; 85610; 87071; 87077; 87186; 87205; 89051; 96365; A4215; P9046

== ENCOUNTER → 2020-06-27 | Outpatient (CLI) | payer OTHER ==
[~2020-06-27] MED LIST changes: +ALBUMIN (HUMAN) 25% 200 ML IV ONE; -ALBUMIN (HUMAN) 25% 200 ML IV SCH
--- NOTE | 2020-06-27 09:05 | NUR ---
U/S GUIDED PARACENTESIS PROCEDURE PERFORMED BY DR. PALMER. PUNCTURE SITE RIGHT UPPER QUADRANT AND PATIENT TOLERATED PROCEDURE WELL. TOTAL REMOVED 8.1 LITERS OF YELLOW CLOUDY ASCITES FLUID. END OF PROCEDURE AT 0945. CATHETER REMOVED AND DRESSING APPLIED. NO BLEEDING NOTED. ALBUMIN 25% 50 GRAMS GIVEN IV PER ALBUMIN PROTOCOL. RIGHT FOREARM PIV DC'D, BANDAID APPLIED, DRESSING DRY AND INTACT. DISCHARGE INSTRUCTIONS GIVEN TO PATIENT. PATIENT VERBALIZED UNDERSTANDING. PT DISCHARGED VIA W/C @ 1005. PT STABLE, AAO X 3 WITH NO C/O PAIN.
[2020-06-27 14:42] LABS: SPECIMENTYPE,BODY FLUID ASCITES
[2020-06-27 14:43] LABS: APPEARANCE BODY FLUID CLEAR (CLEAR); BODY FLUID WBC 22 /cu. mm.; COLOR,BODY FLUID YELLOW (LT YELLOW); TOTAL VOLUME,BODY FLUID 8100 mL
[2020-06-27 14:44] LABS: BODY FLUID RBC 115 /cu. mm.
[2020-06-27 15:28] LABS: BF LYMPHOCYTE 25 %; BF MESOTHELIAL 6 %
== END | disposition home or self-care (01) ==
LOC: RAH 08:04
PROVIDERS: ATTEND Internal Medicine Gastroenterology
DX: R18.8 Other ascites (principal); K74.3 Primary biliary cirrhosis; K72.90 Hepatic failure, unspecified without coma; E11.22 Type 2 diabetes mellitus with diabetic chronic kidney disease; I12.9 Hypertensive chronic kidney disease with stage 1 through stage 4 chronic kidney disease, or unspecified chronic kidney disease; N18.3 Chronic kidney disease, stage 3 (moderate); E78.5 Hyperlipidemia, unspecified; Z86.010 Personal history of colon polyps; Z79.899 Other long term (current) drug therapy
CPT/HCPCS: 49083; 89051; A4215; P9046; 96365

== ENCOUNTER 2020-06-30 01:43 | Inpatient (IN) | payer OTHER ==
[~2020-06-30] VITALS: Ht 165.1 cm; Wt 72.4 kg
[~2020-06-30 01:43] MED LIST changes: -ALBUMIN (HUMAN) 25% 200 ML IV ONE
[2020-06-30] MEDS ORDERED: ONDANSETRON HCL 4 MG/2 ML VIAL ONE (02:07)
[2020-06-30] MEDS ORDERED: FENTANYL CITRATE PF 50 MCG/1 ML 2ML VIAL ONE ×2 (02:08→03:29)
[2020-06-30 02:19] LABS: BASOPHILS % (AUTO) 0.3 % (0.0-5.0); EOSINOPHILS % (AUTO) 0.3 % (0.0-8.0); HEMATOCRIT 33.6 % (36-48); LYMPHOCYTES % (AUTO) 1.1 % (21.0-51.0); MEAN CORPUSCULAR HEMOGLOBIN 32.5 pg (27.0-33.0); MEAN CORPUSCULAR HGB CONC 33.6 g/dL (32.0-36.0); MEAN CORPUSCULAR VOLUME 96.6 fL (79-99); MONOCYTES % (AUTO) 0.1 % (3.0-13.0); NEUTROPHILS % (AUTO) 97.6 % (40.0-77.0); NUCLEATED RED BLOOD CELLS 0.2 % (0.0-0.19); PLATELET COUNT (AUTO) 147 K/uL (130-400); RED BLOOD CELL COUNT(AUTO) 3.48 MIL/uL (4.00-5.50); RED CELL DISTRIBUTION WIDTH 15.6 % (11.0-15.5)
[2020-06-30 02:27] LABS: INR 1.09 (0.85-1.15); PARTIAL THROMBOPLASTIN TIME 21.2 SEC (26.3-35.5); PROTHROMBIN TIME 11.7 SEC (9.6-11.6)
[2020-06-30 02:37] LABS: ALANINE AMINOTRANSFERASE 13 U/L (12-78); ALBUMIN 3.6 g/dL (3.5-5.0); ASPARTATE AMINOTRANSFERASE 58 U/L (10-37); BILIRUBIN,TOTAL 1.9 mg/dL (0.2-1.0); CARBON DIOXIDE 14 mmol/L (21-32); CHLORIDE 102 mmol/L (101-111); CREATINE KINASE, TOTAL 28 U/L (21-232); CREATININE 1.9 mg/dL (0.5-1.5); GLOMERULAR FILTR. RATE CALC 28 mL/min (>60); GLUCOSE,RANDOM 131 mg/dL (70-105); MYOGLOBIN 26 ng/mL (10-92); SODIUM SERUM 129 mmol/L (136-145); TOTAL PROTEIN, SERUM 7.5 g/dL (6.0-8.3); TROPONIN I < 0.04 ng/mL (0.00-0.06); UREA NITROGEN, BLOOD 35 mg/dL (7-18)
[2020-06-30] MEDS ORDERED: ZOSYN 3.375GM+NS 50ML 50 ML IV ONE (02:38)
[2020-06-30 02:47] LABS: POTASSIUM 6.5 mmol/L (3.5-5.1)
[2020-06-30] MEDS ORDERED: IOHEXOL-350 75 ML VIAL IV ONE (02:54)
[2020-06-30] MEDS ORDERED: SODIUM POLYSTYRENE SULFONATE 15 GM/60 ML ML ONE (04:12)
[2020-06-30] MEDS ORDERED: SODIUM BICARB 50MEQ 50ML VIAL ONE (04:13)
[2020-06-30] MEDS ORDERED: DEXTROSE 50%-WATER 50 ML DISP.SYRIN IV ONE (04:13)
[2020-06-30] MEDS ORDERED: INSULIN HUMULIN R 100 UNIT/ML 3ML ONE (04:14)
[2020-06-30] MEDS ORDERED: CALCIUM GLUCONATE 1 GM/10 ML VIAL IV ONE (04:14)
[2020-06-30] MEDS ORDERED: ALBUTEROL SULFATE 0.083% 2.5 MG/3 ML INH IH ONE (04:15)
[2020-06-30] MEDS ORDERED: HYDROMORPHONE 1 MG/1 ML AMP ONE (04:30)
[2020-06-30] MEDS ORDERED: FUROSEMIDE 10 MG/ML 2ML VIAL ONE (04:39)
[2020-06-30 05:51] LABS: APPEARANCE,URINE Cloudy (CLEAR); BILIRUBIN,URINE Negative (NEGATIVE); COLOR,URINE Dark Yellow (YELLOW); GLUCOSE, URINE (UA) Negative (NEGATIVE); KETONES,URINE Negative (NEGATIVE); LEUKOCYTE ESTERASE ,URINE Trace (NEGATIVE); NITRATE,URINE Negative (NEGATIVE); OCCULT BLOOD,URINE Moderate (NEGATIVE); PROTEIN,URINE Negative (NEGATIVE)
[2020-06-30 05:56] LABS: BACTERIA,URINE Few /HPF (None Seen); MUCUS,URINE Moderate LPF (None Seen); SQUAMOUS EPITHELIAL CELL,UR Moderate /HPF (0-2)
[2020-06-30] MEDS ORDERED: VANCOMYCIN 1GM+NS 250ML 250 ML IV ONE (09:07)
[2020-06-30] MEDS: SODIUM CHLORIDE 0.9% 1000ML 1,000 ML IV SCH ×2 (09:19→19:19)
[2020-06-30] MEDS ORDERED: ACETAMINOPHEN 325 MG TAB PO PRN ×2 (09:30)
[2020-06-30] MEDS ORDERED: LACTULOSE 20 GM/30 ML UDCUP PO PRN (09:30)
[2020-06-30] MEDS ORDERED: VANCOMYCIN PROTOCOL PER PHARMACY IV SCH (10:15)
[2020-06-30 10:42] LABS: CREATININE 1.9 mg/dL (0.5-1.5); POTASSIUM 5.8 mmol/L (3.5-5.1)
[2020-06-30] MEDS: SODIUM POLYSTYRENE SULFONATE 15 GM/60 ML ML PO SCH (11:00)
[2020-06-30 11:05] LABS: HEMATOCRIT 26.3 % (36-48); MEAN CORPUSCULAR HEMOGLOBIN 33.5 pg (27.0-33.0); MEAN CORPUSCULAR HGB CONC 34.6 g/dL (32.0-36.0); MEAN CORPUSCULAR VOLUME 96.7 fL (79-99); NUCLEATED RED BLOOD CELLS 0.1 % (0.0-0.19); RED BLOOD CELL COUNT(AUTO) 2.72 MIL/uL (4.00-5.50); RED CELL DISTRIBUTION WIDTH 15.3 % (11.0-15.5); WHITE BLOOD COUNT (AUTO) 23.2 K/uL (4.8-10.8)
[2020-06-30 11:47] LABS: PLATELET COUNT (AUTO) 62 K/uL (130-400)
[2020-06-30] MEDS ORDERED: ZOSYN 3.375GM+NS 50ML 50 ML IV SCH (13:00)
[2020-06-30] MEDS ORDERED: MORPHINE SULFATE 2 MG/ML 1ML SYG ONE (13:16)
[2020-06-30] MEDS ORDERED: PHARMACY COMMUNICATION MISC SCH ×2 (15:15→17:15)
--- NOTE | 2020-06-30 17:30 | NUR ---
ADMISSION FORM ER. PER SERVICES OF DR. ORANTES. .. REVIEW DR Uriarte ORDERS WITH PT. AND CARE OF PLAN PT AAO X 3 . ABD LARGE DUE TO HX OF CIRRHOSIS OF THE LIVER AND GET TAPS LAST DONE IN FEBRUARY .. PT CAME IN WITH A ESCOBEDO AND IS SECURE TO HER RT THIGH WITH A URINE FLOW OF CLEAR YELLOW URINE . CALL LIGHT IN ANAID CH O2 VIA NC CONT.
--- NOTE | 2020-06-30 17:38 | NUR ---
ADMISSION ASK PT FOR HER HOME MEDICATIONS PT STATED THAT SHE DID NOT BRING THEM IN. WILL GET DAUGHTER TO DROP THEM AT THE ER. IF POSSIBLE
[2020-06-30] MEDS: MIDODRINE HCL 5 MG TABLET PO SCH ×2 (17:49→22:33)
--- NOTE | 2020-06-30 18:20 | NUR ---
DR. ROSEANN ORANTES CALLED BACK AND LABS RESULTS GIVEN WITH NEW ORDERS TO FOLLOW.
[2020-06-30] MEDS ORDERED: DEXTROSE 50%-WATER 50 ML DISP.SYRIN IV SCH (18:30)
[2020-06-30] MEDS ORDERED: CALCIUM CHLORIDE 100 MG/ML 10 ML SYG IVP SCH (18:30)
[2020-06-30] MEDS ORDERED: INSULIN HUMULIN R 100 UNIT/ML 3ML SQ SCH (18:30)
[2020-06-30] MEDS ORDERED: SODIUM POLYSTYRENE SULFONATE 15 GM/60 ML ML PO SCH (18:30)
[2020-06-30] MEDS ORDERED: COMPOUND IV REFRIGERATED 1 EACH IVSOLN MISC PRN (18:45)
[2020-06-30] MEDS ORDERED: ALBUMIN (HUMAN) 25% 100 ML IV SCH (18:45)
--- NOTE | 2020-06-30 18:50 | NUR ---
GAVE PT THE 10 UNITS OF HUM R SQ 25 GMS OF DEXTROSE 50% IV P SLOWLY AND THE 30 GMS OF KAYEXALATE PO . PENDING THE ALBUMIN IVP AND THE CALCIUM GLUCONATE I GM IVPB .
[2020-06-30 20:00] VITALS: BP 98/62
[2020-06-30] MEDS ORDERED: CALCIUM GLUCONATE 1 GM/10 ML VIAL IV SCH (20:00)
[2020-06-30] MEDS ORDERED: CALCIUM GLUCONATE 1 GM in SODIUM CHLORIDE 0.9% 100 ML IV SCH (20:15)
[2020-06-30] MEDS ORDERED: ALBUMIN (HUMAN) 25% 100 ML IV ONE (22:15)
[2020-06-30] MEDS: MORPHINE SULFATE 2 MG/ML 1ML SYG IV PRN (22:57)
[2020-06-30] MEDS: OCTREOTIDE ACETATE 100 MCG/ML AMP IV SCH (23:03)
[2020-06-30] MEDS: ZOSYN 3.375GM+NS 50ML 50 ML IV SCH (23:14)
[2020-07-01] VITALS (14 sets, daily range): BP systolic 89–121; BP diastolic 49–67
[2020-07-01 04:15] LABS: BASOPHILS % (AUTO) 0.1 % (0.0-5.0); HEMATOCRIT 23.3 % (36-48); LYMPHOCYTES % (AUTO) 0.6 % (21.0-51.0); MEAN CORPUSCULAR HEMOGLOBIN 32.4 pg (27.0-33.0); MEAN CORPUSCULAR HGB CONC 33.5 g/dL (32.0-36.0); MEAN CORPUSCULAR VOLUME 96.7 fL (79-99); MONOCYTES % (AUTO) 0.7 % (3.0-13.0); NEUTROPHILS % (AUTO) 97.8 % (40.0-77.0); PLATELET COUNT (AUTO) 43 K/uL (130-400); RED BLOOD CELL COUNT(AUTO) 2.41 MIL/uL (4.00-5.50); RED CELL DISTRIBUTION WIDTH 15.3 % (11.0-15.5); WHITE BLOOD COUNT (AUTO) 12.3 K/uL (4.8-10.8)
[2020-07-01 04:29] LABS: ALANINE AMINOTRANSFERASE 11 U/L (12-78); ALBUMIN 2.9 g/dL (3.5-5.0); ASPARTATE AMINOTRANSFERASE 36 U/L (10-37); BILIRUBIN,TOTAL 1.8 mg/dL (0.2-1.0); CARBON DIOXIDE 15 mmol/L (21-32); CHLORIDE 109 mmol/L (101-111); CREATININE 1.9 mg/dL (0.5-1.5); GLOMERULAR FILTR. RATE CALC 28 mL/min (>60); GLUCOSE,RANDOM 119 mg/dL (70-105); SODIUM SERUM 134 mmol/L (136-145); TOTAL PROTEIN, SERUM 5.9 g/dL (6.0-8.3); UREA NITROGEN, BLOOD 42 mg/dL (7-18)
[2020-07-01 04:30] LABS: AMMONIA < 10 umol/L (11-32)
[2020-07-01 04:31] LABS: POTASSIUM 6.3 mmol/L (3.5-5.1)
[2020-07-01] MEDS ORDERED: INSULIN HUMULIN R 100 UNIT/ML 3ML IV STA (05:04)
[2020-07-01] MEDS ORDERED: ALBUTEROL SULFATE 0.083% 2.5 MG/3 ML INH IH ONE ×2 (05:15→06:58)
[2020-07-01] MEDS: DEXTROSE 50%-WATER 25 GM/50 ML VIAL IV SCH (05:15)
[2020-07-01] MEDS: SODIUM CHLORIDE 0.9% 1000ML 1,000 ML IV SCH ×2 (05:19→15:19)
[2020-07-01] MEDS ORDERED: DEXTROSE 50%-WATER 50 ML DISP.SYRIN IV ONE (05:21)
[2020-07-01] MEDS ORDERED: INSULIN HUMULIN R 100 UNIT/ML 3ML ONE (05:22)
[2020-07-01 05:49] LABS: % IRON SATURATION 78.3 % (22-44)
[2020-07-01] MEDS ORDERED: ALBUTEROL SULFATE 0.083% 2.5 MG/3 ML INH IH SCH (08:15)
[2020-07-01] MEDS ORDERED: DEXTROSE 50%-WATER 50 ML DISP.SYRIN IV SCH ×2 (08:30→13:00)
[2020-07-01] MEDS ORDERED: FAMOTIDINE/PF 20 MG/2 ML VIAL IV SCH (09:00)
[2020-07-01] MEDS ORDERED: SODIUM POLYSTYRENE SULFONATE 15 GM/60 ML ML PO SCH ×2 (09:45→19:00)
[2020-07-01] MEDS ORDERED: PANTOPRAZOLE 40 MG/VIAL IVP SCH (09:45)
[2020-07-01] MEDS: CALCIUM CHLORIDE 100 MG/ML 10 ML SYG IVP SCH (10:00)
[2020-07-01] MEDS: INSULIN HUMULIN R 100 UNIT/ML 3ML SQ SCH ×2 (10:01→13:25)
[2020-07-01] MEDS: ZOSYN 3.375GM+NS 50ML 50 ML IV SCH ×2 (10:02→21:13)
[2020-07-01] MEDS: MIDODRINE HCL 5 MG TABLET PO SCH ×3 (10:03→21:14)
[2020-07-01] MEDS: OCTREOTIDE ACETATE 100 MCG/ML AMP IV SCH ×2 (10:03→15:59)
[2020-07-01] MEDS: MORPHINE SULFATE 2 MG/ML 1ML SYG IV PRN ×2 (10:20→18:03)
[2020-07-01] MEDS: SODIUM POLYSTYRENE SULFONATE 15 GM/60 ML ML PO SCH (11:00)
[2020-07-01] MEDS ORDERED: ALBUMIN (HUMAN) 25% 100 ML IV SCH (11:45)
[2020-07-01] MEDS: VANCOMYCIN 1.25 GM in SODIUM CHLORIDE 0.9% 250 ML IV SCH (12:00)
--- NOTE | 2020-07-01 13:55 | NUR ---
U/S GUIDED PARACENTESIS PROCEDURE PERFORMED BY DR. MALHOTRA. PUNCTURE SITE RIGHT UPPER QUADRANT AND PATIENT TOLERATED PROCEDURE WELL. TOTAL REMOVED 6.0 LITERS OF YELLOW CLOUDY ASCITES FLUID. END OF PROCEDURE AT 1445. CATHETER REMOVED AND DRESSING APPLIED. NO BLEEDING NOTED. ALBUMIN 25% 50 GRAMS GIVEN IV PER ALBUMIN PROTOCOL. CALLED REPORT AND PATIENT TRANSPORTED TO [facility] VIA BED. PT STABLE, AAO X 3 WITH NO C/O PAIN.
[2020-07-01 15:43] LABS: APPEARANCE BODY FLUID CLOUDY (CLEAR); COLOR,BODY FLUID YELLOW (LT YELLOW); SPECIMENTYPE,BODY FLUID ASCITES; TOTAL VOLUME,BODY FLUID 6000 mL
[2020-07-01 15:49] LABS: BODY FLUID RBC 1705 /cu. mm.; BODY FLUID WBC 5968 /cu. mm.
[2020-07-01] MEDS: PANTOPRAZOLE 40 MG/VIAL IVP SCH ×2 (15:59→21:13)
--- NOTE | 2020-07-01 16:00 | NUR ---
PARACENTESIS PT S/P PARACENTESIS TO RIGHT UPPER ABDOMEN, SITE INTACT, NO DRAINAGE OR HEMATOMA. PT DENIES DISCOMFORT. SYSTOLIC BP 88- 94, ASYMPTOMATIC, DR COLINDRES MADE AWARE, NO NEW ORDERS
--- NOTE | 2020-07-01 17:02 | NUR ---
DANIELLE NOTE/IA DAUGHTER AT BEDSIDE. PER DAUGHTER, PATIENT IS DEPENDENT WITH ADLS, LIVES WITH HER, NO USE OF PROVIDER OR HOME HEALTH, NO DME EQUIPMENT AND FEEL SAFE TO RETURN HOME ONCE DISCHARGED. POSSIBLE HOSPICE ADMISSION, PENDING ON SITE PROPERTY MANAGER TO REFER. Addendum: 07/02/20 at 1703 by ENEIDA BOURGEOIS RN CM Amended: Links added.
[2020-07-01 17:25] LABS: CREATININE 1.8 mg/dL (0.5-1.5); POTASSIUM 5.5 mmol/L (3.5-5.1)
[2020-07-02] VITALS (7 sets, daily range): BP systolic 97–128; BP diastolic 59–76
[2020-07-02] MEDS: MORPHINE SULFATE 2 MG/ML 1ML SYG IV PRN (00:11)
--- NOTE | 2020-07-02 00:19 | NUR ---
Rounding on pt. pt. lying in bed w/ dark red blood covering her arm and sheets, states she does not know how it happened, cleaned scratched w/[employer] SPECIALIST assist..pt verbalizes no complaints. will continue to monitor
[2020-07-02] MEDS: SODIUM CHLORIDE 0.9% 1000ML 1,000 ML IV SCH (01:54)
[2020-07-02 04:49] LABS: BASOPHILS % (AUTO) 0.7 % (0.0-5.0); HEMATOCRIT 24.1 % (36-48); MEAN CORPUSCULAR HEMOGLOBIN 32.7 pg (27.0-33.0); MONOCYTES % (AUTO) 0.8 % (3.0-13.0); NEUTROPHILS % (AUTO) 92.5 % (40.0-77.0); PLATELET COUNT (AUTO) 52 K/uL (130-400); RED BLOOD CELL COUNT(AUTO) 2.51 MIL/uL (4.00-5.50); RED CELL DISTRIBUTION WIDTH 15.4 % (11.0-15.5); WHITE BLOOD COUNT (AUTO) 8.4 K/uL (4.8-10.8)
[2020-07-02] MEDS ORDERED: DEXTROSE 50%-WATER 50 ML DISP.SYRIN IV ONE (04:54)
[2020-07-02 05:06] LABS: BILIRUBIN,TOTAL 1.8 mg/dL (0.2-1.0); CREATININE 1.7 mg/dL (0.5-1.5); POTASSIUM 5.8 mmol/L (3.5-5.1); TOTAL PROTEIN, SERUM 5.8 g/dL (6.0-8.3)
[2020-07-02] MEDS: DEXTROSE 50%-WATER 25 GM/50 ML VIAL IV SCH (05:15)
[2020-07-02] MEDS: LACTULOSE 20 GM/30 ML UDCUP PO SCH ×2 (05:32→13:00)
[2020-07-02] MEDS: CALCIUM CHLORIDE 100 MG/ML 10 ML SYG IVP SCH (07:36)
[2020-07-02] MEDS: INSULIN HUMULIN R 100 UNIT/ML 3ML SQ SCH ×2 (07:36→07:37)
[2020-07-02] MEDS: SODIUM POLYSTYRENE SULFONATE 15 GM/60 ML ML PO SCH (07:37)
[2020-07-02] MEDS ORDERED: SODIUM BICARBONATE 650 MG TAB PO PRN (09:00)
[2020-07-02] MEDS: VANCOMYCIN 1.25 GM in SODIUM CHLORIDE 0.9% 250 ML IV SCH (09:00)
[2020-07-02] MEDS ORDERED: SODIUM POLYSTYRENE SULFONATE 15 GM/60 ML ML PO SCH (09:00)
[2020-07-02] MEDS: ONDANSETRON HCL 4 MG/2 ML VIAL IV PRN (09:38)
[2020-07-02] MEDS: MIDODRINE HCL 5 MG TABLET PO SCH ×3 (09:38→21:00)
[2020-07-02] MEDS: ZOSYN 3.375GM+NS 50ML 50 ML IV SCH ×2 (09:38→21:00)
[2020-07-02] MEDS: PANTOPRAZOLE 40 MG/VIAL IVP SCH ×2 (09:38→21:00)
--- NOTE | 2020-07-02 10:15 | NUR ---
Hospice Referral-ELIE telephoned pt's spouse Dharmesh Faith to speak with him about hospice order; spouse verbalized an understanding, however, stated that he is at work and requested that this worker speak with dtr. Hopkins for consents and arrangements. ELIE contacted dtr. Hopkins to discuss hospice order; per Andres she spoke with Dr. London yesterday and is aware of plans for hospice. ELIE provided information on hospice philosophy and services; Andres voiced an understanding. Verbal Consent for [facility] provided to this worker and Judith/DANIELLE. [facility] Cam[facility] and obtain OOHDNR.
--- NOTE | 2020-07-02 14:30 | NUR ---
[facility]-DME to be delivered within 2hrs. Nursing to call report to [phone] Bhavana. DANIELLE/Judith made aware.
--- NOTE | 2020-07-02 15:30 | NUR ---
D/C tomorrow-SW informed by CM that pt. to be d/c'd tomorrow, not today per MD orders. SW notified Rut Davila/Eulalia and pt's dtr. Andres.
--- NOTE | 2020-07-02 16:00 | NUR ---
KUB DR COLINDRES PAGED AND MADE AWARE OF ABNORMAL KUB AND PT APPEARS TO BE MORE LETHARGIC; NEW ORDERS RECEIVED.
[2020-07-02] MEDS: PROMETHAZINE HCL 25 MG/ML 1ML AMPULE IM PRN (16:17)
[2020-07-02] MEDS: METOCLOPRAMIDE 10 MG/2 ML VIAL IVP SCH ×2 (16:36→20:34)
[2020-07-02] MEDS ORDERED: SODIUM POLYSTYRENE SULFONATE 15 GM/60 ML ML RC SCH (17:00)
[2020-07-02] MEDS ORDERED: KETOROLAC TROMETHAMINE 30MG/ML IV SCH (18:15)
--- NOTE | 2020-07-02 18:30 | NUR ---
STATUS REPORT CALL PLACED TO DAUGHTER WENDY TO MAKE ARE OF PTS STATUS; MADE AWARE PT LETHARGIC, STATES DR COLINDRES HAD UPDATED HER ON PT'S CONDITION. STATES TO CALL HER WITH ANY QUESTION, CONCERN, OR CHANGE IN CONDITION. DAUGHTER STATES HAVING SPOKEN TO DR COLINDRES AND PT AND HAVE AGREED ON PT BEING DNR/DNI AND OUTPATIENT HOSPICE.
[2020-07-02 19:59] LABS: CREATININE 1.7 mg/dL (0.5-1.5); POTASSIUM 5.3 mmol/L (3.5-5.1)
[2020-07-02 20:06] LABS: ALBUMIN 2.8 g/dL (3.5-5.0); TOTAL PROTEIN, SERUM 5.8 g/dL (6.0-8.3)
[2020-07-03 03:38] VITALS: BP 123/71
[2020-07-03] MEDS ORDERED: METOPROLOL TARTRATE 1 MG/ML 5ML VIAL IV PRN (04:00)
[2020-07-03] MEDS ORDERED: LABETALOL 20 MG/4 ML DISP.SYRIN IV PRN (04:45)
[2020-07-03] MEDS ORDERED: LABETALOL 20 MG/4 ML DISP.SYRIN IV ONE (04:58)
[2020-07-03] MEDS: DEXTROSE 50%-WATER 25 GM/50 ML VIAL IV SCH (05:15)
[2020-07-03] MEDS: PROMETHAZINE HCL 25 MG/ML 1ML AMPULE IM PRN (05:45)
[2020-07-03 06:37] LABS: BASOPHILS % (AUTO) 1.9 % (0.0-5.0); HEMATOCRIT 25.4 % (36-48); LYMPHOCYTES % (AUTO) 1.9 % (21.0-51.0); MEAN CORPUSCULAR HGB CONC 33.9 g/dL (32.0-36.0); MEAN CORPUSCULAR VOLUME 94.4 fL (79-99); MONOCYTES % (AUTO) 5.8 % (3.0-13.0); NEUTROPHILS % (AUTO) 80.7 % (40.0-77.0); PLATELET COUNT (AUTO) 56 K/uL (130-400); RED BLOOD CELL COUNT(AUTO) 2.69 MIL/uL (4.00-5.50); RED CELL DISTRIBUTION WIDTH 15.3 % (11.0-15.5); WHITE BLOOD COUNT (AUTO) 1.6 K/uL (4.8-10.8)
[2020-07-03 06:53] LABS: ALBUMIN 2.7 g/dL (3.5-5.0); BILIRUBIN,TOTAL 2.3 mg/dL (0.2-1.0); CREATININE 2.2 mg/dL (0.5-1.5); POTASSIUM 5.4 mmol/L (3.5-5.1); TOTAL PROTEIN, SERUM 5.8 g/dL (6.0-8.3)
[2020-07-03 08:00] VITALS: BP_SYST 81; BP_SYST 83; BP_DIAS 49
[2020-07-03] MEDS: METOCLOPRAMIDE 10 MG/2 ML VIAL IVP SCH (09:00)
[2020-07-03] MEDS: PANTOPRAZOLE 40 MG/VIAL IVP SCH (09:00)
[2020-07-03] MEDS: LACTULOSE 20 GM/30 ML UDCUP PO SCH (09:00)
[2020-07-03] MEDS: MIDODRINE HCL 5 MG TABLET PO SCH ×2 (09:00→14:00)
[2020-07-03] MEDS: ZOSYN 3.375GM+NS 50ML 50 ML IV SCH (09:00)
[2020-07-03] MEDS: VANCOMYCIN 1.25 GM in SODIUM CHLORIDE 0.9% 250 ML IV SCH (09:00)
--- NOTE | 2020-07-03 10:45 | NUR ---
SW contacted [facility] and informed him of update by CM re-orders for rectal tube & NG tube.
[2020-07-03 11:00] VITALS: BP 118/69
[2020-07-03] MEDS: ONDANSETRON HCL 4 MG/2 ML VIAL IV PRN (13:11)
[2020-07-03] MEDS: MORPHINE SULFATE 2 MG/ML 1ML SYG IV PRN (13:12)
--- NOTE | 2020-07-03 14:14 | NUR ---
SW informed by DANIELLE/Judith of pt. refusing tubes. SW followed up with pt's dtr. who stated that she was made aware by Dr. London and that she is ready to receive her mother. SW contacted Eulalia/Sean and provided update; Eulalia to follow up w/this worker once verified that everything is in place by hospice. DANIELLE/Judith made aware.
--- NOTE | 2020-07-03 14:28 | NUR ---
REPORT FOR HOSPICE REP GIVEN TO DORIS. THE APPROVAL OF ADMINISTRATION FOR THE DAUGHTER OF THE PT TO COME AND CONVINCE THE PT IS TIME TO COME HOME FOR CARE. DISCHARGE INSTRUCTIONS ARE IN PROGRESS
--- NOTE | 2020-07-03 14:36 | NUR ---
[facility] and pt. may be d/c'd home.
--- NOTE | 2020-07-03 15:24 | NUR ---
ESCOBEDO REMOVED PER DR COLINDRES, DAUGHTER HERE FOR PT. EMS NOTIFIED OF PT DISCHARGE. PT PREPARED FOR DISMISSAL HOME FOR HOSPICE CARE
[2020-07-03 16:00] VITALS: BP 106/66
--- NOTE | 2020-07-03 17:44 | NUR ---
EMS HERE TRANSPORT PT HOME FOR HOSPICE CARE. IV REMOVED W/O DIFFICULTY OR COMPLICATION. DAUGHTER PRESENT.
--- NOTE | 2020-07-05 12:03 | NUR ---
CM NOTE PRIOR AUTH REQUEST FAXED TO [employer] AT ALONG WITH CLINICAL PACKET SUPPORTING EMS TRANSFER.
--- NOTE | 2020-07-05 12:48 | NUR ---
CM NOTE REQUEST FOR PRIOR AUTH FAX CONFIRMATION FAXED TO [facility] AT [phone] TO SHOW PROOF OF REQUEST INITIATED.
--- NOTE | 2020-07-08 16:06 | NUR ---
CM NOTE RECEIVED EMAIL FROM [facility] REQUESTING RESUBMIT OF CLINICALS FOR EMS AUTHORIZATION, REQUIRING CORRECT HOSPITAL NPI NUMBER. CORRECTED FORMS AND CLINICAL PACKET FAXED TO .
== END 2020-07-03 17:50 | disposition hospice, home (50) | DRG 871 ==
LOC: EDH 01:43 → EDHIP 09:19 → 4CH 13:05
PROVIDERS: ADMIT Family Medicine; ATTEND Family Medicine
PROC: 0W9G3ZZ Drainage of Peritoneal Cavity, Percutaneous Approach (ICD-10-PCS; principal; 2020-07-01)
DX: A41.9 Sepsis, unspecified organism (principal); K76.7 Hepatorenal syndrome; R18.8 Other ascites; N17.9 Acute kidney failure, unspecified; K92.2 Gastrointestinal hemorrhage, unspecified; K76.6 Portal hypertension; A04.9 Bacterial intestinal infection, unspecified; E87.5 Hyperkalemia; K74.60 Unspecified cirrhosis of liver; D64.9 Anemia, unspecified; Z20.828 Contact with and (suspected) exposure to other viral communicable diseases; D69.6 Thrombocytopenia, unspecified; Z51.5 Encounter for palliative care; Z66 Do not resuscitate; E11.22 Type 2 diabetes mellitus with diabetic chronic kidney disease; E78.00 Pure hypercholesterolemia, unspecified; C55 Malignant neoplasm of uterus, part unspecified; I12.9 Hypertensive chronic kidney disease with stage 1 through stage 4 chronic kidney disease, or unspecified chronic kidney disease; R16.1 Splenomegaly, not elsewhere classified; N18.9 Chronic kidney disease, unspecified; N61.0 Mastitis without abscess; R62.7 Adult failure to thrive; Z68.26 Body mass index [BMI] 26.0-26.9, adult; Z90.49 Acquired absence of other specified parts of digestive tract; Z92.3 Personal history of irradiation; Z92.21 Personal history of antineoplastic chemotherapy; Z82.49 Family history of ischemic heart disease and other diseases of the circulatory system; Z82.0 Family history of epilepsy and other diseases of the nervous system; Z84.89 Family history of other specified conditions
CPT/HCPCS: 36415; 49083; 71045; 74018; 74177; 80048; 80053; 81001; 82140; 82533; 82550; 82728; 82948; 83540; 83550; 83605; 83874; 83880; 84132; 84145; 84484; 85025; 85027; 85610; 85730; 87040; 87071; 87088; 87205; 87426; 89051; 93005; 94640; 96365; C9113; G0378; J0610; J1170; J1815; J1885; J1940; J2354; J2405; J2543; J2550; J2765; J3010; J3370; J3490; J7050; J7070; P9046; P9047; Q9967